=== PATIENT | male | born 1970 | race Caucasian/White ===

== ENCOUNTER 2017-06-10 17:00 | Emergency (ER) | payer OTHER ==
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
[2017-06-10 17:23] VITALS: BP 109/71; BMI 20.3
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
[2017-06-10] MEDS ORDERED: TORADOL 30 MG VIAL IVP ONE (19:17)
[2017-06-10] MEDS ORDERED: TORADOL 30 MG VIAL ONE (19:18)
--- NOTE | 2017-06-10 19:41 | RAD ---
EXAM: Left shoulder x-ray INDICATION: Pain COMPARISION: No priors for comparison TECHNIQUE: Lateral, AP with internal and external rotation, 3 views FINDINGS: No acute fracture or dislocation. Mild degenerative arthropathy is present the acromioclavicular yakelin nt. The glenohumeral joint appears unremarkable. The soft tissues are normal. No radiopaque foreign body. The visualize ribs are intact. IMPRESSION: Degenerative arthropathy is present the acromioclavicular joint. Reported By:
== END 2017-06-10 19:40 | disposition home or self-care (01) ==
LOC: ER 17:05
DX: S29.019A Strain of muscle and tendon of unspecified wall of thorax, initial encounter (principal); S39.012A Strain of muscle, fascia and tendon of lower back, initial encounter; S16.1XXA Strain of muscle, fascia and tendon at neck level, initial encounter; S09.8XXA Other specified injuries of head, initial encounter; V87.7XXA Person injured in collision between other specified motor vehicles (traffic), initial encounter
CPT/HCPCS: 70450; 72125; 72128; 72131; 73030; 96365; 96374; 99283; J1885

== ENCOUNTER 2024-12-09 08:51 | Inpatient (IN) ==
--- NOTE | 2024-12-09 08:56 | EKG ---
Test Reason : short of breath Blood Pressure : */* mmHG Vent. Rate : 82 BPM Atrial Rate : 82 BPM P-R Int : 148 ms QRS Dur : 94 ms QT Int : 360 ms P-R-T Axes : 84 254 70 degrees QTc Int : 420 ms Sinus rhythm with marked sinus arrhythmia Septal infarct (cited on or before 13-SEP-2024) Possible Lateral infarct , age undetermined Abnormal ECG When compared with ECG of 21-OCT-2024 17:13, QRS axis shifted left Borderline criteria for Lateral infarct are now present T wave inversion no longer evident in Anterior leads QT has shortened Confirmed by Kirill Carlton MD ([id number]) on 12/09/2024 10:26:33 AM Referred By: Confirmed By: Kirill Carlton MD
[2024-12-09 09:11] LABS: BASOPHILS # (AUTO) 0.1 X10^3/uL (0.0-0.1); BASOPHILS % (AUTO) 1.2 % (0.2-1.0); EOSINOPHILS % (AUTO) 0.1 % (0.9-2.9); HEMATOCRIT 45.8 % (42.0-54.0); HEMOGLOBIN 15.7 g/dL (13.5-18.0); LYMPHOCYTES # (AUTO) 2.2 X10^3/uL (1.3-2.9); MEAN CORPUSCULAR HEMOGLOBIN 32.7 pg (27.0-34.0); MEAN CORPUSCULAR HGB CONC 34.2 g/dL (33.0-35.0); MEAN CORPUSCULAR VOLUME 95.6 fL (80.0-100.0); MEAN PLATELET VOLUME 7.7 fL (7.4-11.0); MONOCYTES # (AUTO) 0.7 x10^3/uL (0.3-0.8); MONOCYTES % (AUTO) 9.3 % (0.0-13.0); NEUTROPHILS # (AUTO) 4.4 x10^3/uL (2.2-4.8); NEUTROPHILS % (AUTO) 59.4 % (42.0-75.0); PLATELET COUNT 302 X10^3/uL (150.0-450.0); RED BLOOD COUNT 4.79 X10^6/uL (4.7-6.0); RED CELL DISTRIBUTION WIDTH 13.5 % (11.6-16.5); WHITE BLOOD COUNT 7.5 X10^3/uL (3.6-10.0)
--- NOTE | 2024-12-09 09:13 | DR.SOBA ---
HPI Time Seen Time Seen by Provider: 12/09/24 09:04 Primary Care Physician Primary Care Physician: Shankar HPI Comment HPI Comment: History as below. Complaints Chief Complaint Doctors Comments: Patient is 54yr old male in ER complaining of SOB and chest pain that started this morning. He was sleeping and woke up with sudden onset of severe SOB and chest tightness. Patient has history of pneumothorax and COPD. He denies trauma, fever, congestion and dysuria. Chief Complaint:: PT was asleep and woke up with SOB and chest pain. Pt is deaf and has a fly tier present. Self Treatment fo Chief Complaint: inhaler COVID-19 Coronavirus risk:travel/contact w/high risk person: No Has patient experienced Coronavirus symptoms: Yes Coronavirus symptoms experienced: Shortness of Breath Reviewed Nurses Notes Reviewed: Yes Source History Provided: Patient, Family Member and Significant Other Mode of Arrival Mode of Arrival: Ambulatory Timing Onset of Chief Complaint: 12/09/24 PMH PMH Past Medical History: Yes Past Medical History: COPD Past Surgical History: Yes Surgical History: Ortho Surgery Family History History of Family Medical Conditions: No Social History Do you use any recreational Drugs:: Yes (Marijuana) Lives With: Spouse Lives Where: Home Travel Risk Coronavirus risk:travel/contact w/high risk person: No Has patient experienced Coronavirus symptoms: Yes Coronavirus symptoms experienced: Shortness of Breath Infectious screening Have you traveled outside the country in the last 6 months?: No Isolation: Standard ROS Review of Systems Constitutional: Diaphoresis; negative Fever Eyes: No Symptoms Reported ENTM: Hearing Loss (Patient is deaf.); negative Nose Discharge or Nose Congestion Respiratoy: No Symptoms Reported, Moist Cough, Orthopnea, Short of Breath and Wheezing Cardiovascular: Chest Pain (TIGHTNESS.) Gastrointestinal/Abdominal: No Symptoms Reported; negative Abdominal Pain, Diarrhea, Nausea or Vomiting Genitourinary: No Symptoms Reported; negative Dysuria Neurological: No Symptoms Reported and Other (Patient is deaf.); negative Headache, Weakness or Dizziness Musculoskeletal: No Symptoms Reported; negative Muscle Pain Integumentary: No Symptoms Reported; negative Rash Hematologic/Lymphatic: No Symptoms Reported; negative Easy Bruising Endocrine: No Symptoms Reported; negative Increased Thirst or Increased Urine Psychiatric: No Symptoms Reported All Other Systems: Reviewed and Negative PE Vital Signs Vitals: Vital Signs Temperature 97.5 F Pulse Rate [Left Radial] 84 Pulse Rate 88 Pulse Rate 95 Pulse Rate 89 Pulse Rate 94 Pulse Rate 97 Pulse Rate 92 Pulse Rate 98 Pulse Rate 98 Respiratory Rate 38 Respiratory Rate 22 Respiratory Rate 20 Respiratory Rate 20 Blood Pressure [Right Arm] 116/73 Blood Pressure 116/73 Blood Pressure 112/80 Blood Pressure 115/77 O2 Sat by Pulse Oximetry 96 O2 Sat by Pulse Oximetry 95 O2 Sat by Pulse Oximetry 96 O2 Sat by Pulse Oximetry 96 O2 Sat by Pulse Oximetry 99 O2 Sat by Pulse Oximetry 95 O2 Sat by Pulse Oximetry 95 O2 Sat by Pulse Oximetry 96 General Limitations: No Limitations General Appearance: Alert and In Distress Head Head Exam: Normal Inspection Eyes Eye exam: Normal Appearance ENT ENT Exam: Normal Oropharynx, Normal External Ear Exam and TM's Normal Bilaterally Neck Neck Exam: Normal Inspection and Trachea Midline; negative Tenderness Chest Chest Inspection: Normal Inspection, Symmetric Chest Wall Rise and Tenderness; negative Rash Respiratory Respiratory Exam: Accessory Muscle Use, Chest Wall Tenderness and Respiratory Distress Respiratory Exam: Bilateral: Wheezing and Bilateral: Rhonchi, Left: Decreased Breath Sounds, Upper: Decreased Breath Sounds and Lower: Decreased Breath Sounds Cardiovascular Cardiovascular Exam: Regular Rate, Normal Rhythm and Normal Heart Sounds; negative Systolic Murmur or Diastolic Murmur Abdominal Exam Abdominal Exam: Normal Inspection, Normal Bowel Sounds and Soft; negative Tenderness Extremities Extremities Exam: Normal Inspection and Normal Capillary Refill Back Back Exam: Normal Inspection; negative (R) CVA Tenderness or (L) CVA Tenderness Neurologic Neurological Exam: Alert, Oriented X3 and Other (Deafness); negative Motor Sensory Deficit Psychiatric Psychiatric Exam: Normal Affect and Anxious Skin Skin Exam: Warm and Intact MDM Differential Diagnosis Differential Diagnosis: Bronchitis, COPD, Pneumonia, Pneumothorax and Respiratory Insufficiency COURSE Treatment Treatment: See orders done while patient was in ER. Labs, EKG and X-ray discu ssed. Surgical consult chest tube insertion and admission to hospital for further management. Education/Counseling Education/Counseling: Patient and Family Educated On: Diagnosis Critical Care Notes Total Time (mins): 30 Critical Diagnosis: PEUMOTHORAX. Critical Interventions: SURGERY CONSULT. DISCUSSED PATIENT WITH PATIENT AND FAMILY. CHEST TUBE INSERTED IN ER BY DR. RODRIGUEZ. HE WILL ADMIT PATIENT TO HOSPITAL FOR FURTHER MANAGEMENT. [facility] Labs Reviewed Laboratory Results Reviewed?: Yes 12/21/24 06:41 12/21/24 06:41 Laboratory: WBC 7.5 X10^3/uL (3.6-10.0) 12/09/24 08:56 RBC 4.79 X10^6/uL (4.7-6.0) 12/09/24 08:56 Hgb 15.7 g/dL (13.5-18.0) 12/09/24 08:56 Hct 45.8 % (42.0-54.0) 12/09/24 08:56 MCV 95.6 fL (80.0-100.0) 12/09/24 08:56 MCH 32.7 pg (27.0-34.0) 12/09/24 08:56 MCHC 34.2 g/dL (33.0-35.0) 12/09/24 08:56 RDW 13.5 % (11.6-16.5) 12/09/24 08:56 Plt Count 302 X10^3/uL (150.0-450.0) 12/09/24 08:56 MPV 7.7 fL (7.4-11.0) 12/09/24 08:56 Neut % (Auto) 59.4 % (42.0-75.0) 12/09/24 08:56 Lymph % (Auto) 30.0 % (21.0-51.0) 12/09/24 08:56 Armstrong % (Auto) 9.3 % (0.0-13.0) 12/09/24 08:56 Eos % (Auto) 0.1 % (0.9-2.9) L 12/09/24 08:56 Baso % (Auto) 1.2 % (0.2-1.0) H 12/09/24 08:56 Neut # (Auto) 4.4 x10^3/uL (2.2-4.8) 12/09/24 08:56 Lymph # (Auto) 2.2 X10^3/uL (1.3-2.9) 12/09/24 08:56 Armstrong # (Auto) 0.7 x10^3/uL (0.3-0.8) 12/09/24 08:56 Eos # (Auto) 0.0 x10^3/uL (0.0-0.2) 12/09/24 08:56 Baso # (Auto) 0.1 X10^3/uL (0.0-0.1) 12/09/24 08:56 Absolute Nucleated RBC 0.2 /100WBC 12/09/24 08:56 PT 13.2 SECONDS (11.8-14.3) 12/09/24 08:56 INR Target Range - 12/09/24 08:56 INR 1.02 (0.8-1.3) 12/09/24 08:56 D-Dimer < 0.27 ug/ml (0.0-0.57) 12/09/24 08:56 Sample Site Lbra 12/09/24 09:45 ABG pH 7.430 (7.35-7.45) 12/09/24 09:45 ABG pCO2 38.0 mmHg (35.0-45.0) 12/09/24 09:45 ABG pO2 57.0 mmHg (80.0-100.0) L 12/09/24 09:45 ABG HCO3 25.2 mmol/L (22-26) 12/09/24 09:45 ABG O2 Saturation 90.0 % (90-100) 12/09/24 09:45 ABG Base Excess 1.0 mmol/L (-2.0-2.0) 12/09/24 09:45 Pipe Test N/a 12/09/24 09:45 A-a Gradient 45.0 mmHg 12/09/24 09:45 FiO2 21.0 12/09/24 09:45 Blood Gas Comments Pt martine well elj 12/09/24 09:45 Sodium 143 mmol/L (136-145) 12/09/24 08:56 Corrected Sodium 144 mmol/L (136-145) 12/09/24 08:56 Potassium 3.6 mmol/L (3.5-5.1) 12/09/24 08:56 Chloride 103 mmol/L (98-107) 12/09/24 08:56 Carbon Dioxide 28.6 mmol/L (21-32) 12/09/24 08:56 BUN 13 mg/dL (7-18) 12/09/24 08:56 Creatinine 1.13 mg/dL (0.70-1.30) 12/09/24 08:56 Est GFR (MDRD) Af Amer > 60 (>60) 12/09/24 08:56 Est GFR (MDRD) Non-Af > 60 (>60) 12/09/24 08:56 Glucose 126 mg/dL (65-99) H 12/09/24 08:56 Calcium 9.3 mg/dL (8.5-10.1) 12/09/24 08:56 Corrected Calcium TNP 12/09/24 08:56 Total Bilirubin 1.20 mg/dL (0.2-1.0) H 12/09/24 08:56 AST 19 Units/L (15-37) 12/09/24 08:56 ALT 20 Units/L (12-78) 12/09/24 08:56 Alkaline Phosphatase 65 Units/L (46-116) 12/09/24 08:56 Creatine Kinase 169 Units/L (39-308) 12/09/24 08:56 Troponin I High Sens 6.3 ng/L (4.0-60.0) 12/09/24 08:56 B-Natriuretic Peptide 12.9 pg/mL (0-79) 12/09/24 08:56 Total Protein 7.4 g/dL (6.4-8.2) 12/09/24 08:56 Albumin 4.5 g/dL (3.4-5.0) 12/09/24 08:56 Globulin 2.9 g/dL (2.5-4.5) 12/09/24 08:56 Albumin/Globulin Ratio 1.6 Ratio (1.1-2.1) 12/09/24 08:56 Specimen Type Clean catch urine 12/09/24 10:10 Urine Color Straw (YELLOW) 12/09/24 10:10 Urine Appearance Clear (CLEAR) 12/09/24 10:10 Urine pH 6.0 (5.0 - 8.0) 12/09/24 10:10 Ur Specific [place] 1.010 (1.000-1.030) 12/09/24 10:10 Urine Protein 1+ (NEGATIVE) 12/09/24 10:10 Urine Glucose (UA) Negative (NEGATIVE) 12/09/24 10:10 Urine Ketones Negative (NEGATIVE) 12/09/24 10:10 Urine Blood Negative (NEGATIVE) 12/09/24 10:10 Urine Nitrite Negative (NEGATIVE) 12/09/24 10:10 Urine Bilirubin Negative (NEGATIVE) 12/09/24 10:10 Urine Urobilinogen Normal (NORMAL) 12/09/24 10:10 Ur Leukocyte Esterase Negative (NEGATIVE) 12/09/24 10:10 Urine RBC None seen /HPF (0-3) 12/09/24 10:10 Urine WBC 0-2 /HPF (0-5) 12/09/24 10:10 Ur Squamous Epith Cells Rare /HPF (NEGATIVE) 12/09/24 10:10 Urine Bacteria Negative /HPF (NEGATIVE) 12/09/24 10:10 Urine Mucus Rare /HPF (NEGATIVE) 12/09/24 10:10 Ur Culture Indicated? No/not indicated 12/09/24 10:10 XRAY XRAY Interpreted by: Radiologist (Report noted.) and Self Opioid Opioid Risk Tool Age (Nik box if 16-45): No History of Preadolescent Sexual Abuse: No Total: 0 Total Score Risk Category: Low Risk Copyright: Adeel WEEKS predicting aberrant behaviors Procedures Chest Tube Progress: Chest tube inserted by surgeon, Dr. RODRIGUEZ. See his note. Discharge Plan Diagnosis Discharge Problem: Acute dyspnea Pneumothorax Qualifiers: Pneumothorax type: spontaneous, tension Qualified Code(s): J93.0 - Spontaneous tension pneumothorax Discharge Plan Patient Disposition: ADMITTED INPATIENT Condition: Stable
[2024-12-09 09:28] LABS: ALANINE AMINOTRANSFERASE 20 Units/L (12-78); ALBUMIN 4.5 g/dL (3.4-5.0); ALKALINE PHOSPHATASE 65 Units/L (46-116); ASPARTATE AMINO TRANSFERASE 19 Units/L (15-37); BLOOD UREA NITROGEN 13 mg/dL (7-18); CALCIUM 9.3 mg/dL (8.5-10.1); CARBON DIOXIDE 28.6 mmol/L (21-32); CHLORIDE 103 mmol/L (98-107); COR NA(FOR HYPERGLY) 144 mmol/L (136-145); CREATINE KINASE 169 Units/L (39-308); CREATININE 1.13 mg/dL (0.70-1.30); GLUCOSE 126 mg/dL (65-99); POTASSIUM 3.6 mmol/L (3.5-5.1); SODIUM 143 mmol/L (136-145); TOTAL PROTEIN 7.4 g/dL (6.4-8.2); eGFR NON BLACK RACES > 60 (>60)
[2024-12-09 09:35] LABS: INR 1.02 (0.8-1.3)
[2024-12-09] MEDS: ZOFRAN INJ 4 MG VIAL IVP ONE (09:40)
[2024-12-09] MEDS: MORPHINE SULFATE INJ 2 MG INJ IVP ONE (09:45)
[2024-12-09] MEDS: MORPHINE SULFATE INJ 4 MG IVP ONE ×2 (09:46→20:52)
[2024-12-09 09:53] LABS: ABG HCO3 25.2 mmol/L (22-26)
--- NOTE | 2024-12-09 09:58 | RAD ---
EXAMINATION:CHEST, 1 VIEWHISTORY:SOB H/O PNEUMO; .COMPARISON STUDY:10/21/2024TECHNIQUE:One viewFINDINGS:Normal heart size. 30% left-sided pneumothorax. Minimal shift to the right. Atelectasis in the lingula. No acute infiltrates. No right pneumothorax. Hilar and mediastinal structures and bony structures unchanged. EKG leads overlie the chest.IMPRESSION:30% left-sided pneumothorax. Minimal shift to the rightTHIS IS AN ELECTRONICALLY VERIFIED FINAL REPORT12/09/2024 9:44 AM - Electronically signed by Dante Figueroa MD
[2024-12-09 10:17] LABS: BILIRUBIN,URINE NEGATIVE (NEGATIVE); BLOOD/HEMOGLOBIN,URINE NEGATIVE (NEGATIVE); GLUCOSE, URINE NEGATIVE (NEGATIVE); KETONES,URINE NEGATIVE (NEGATIVE); LEUKOCYTE ESTERASE ,URINE NEGATIVE (NEGATIVE); NITRITES,URINE NEGATIVE (NEGATIVE); PROTEIN,URINE 1+ (NEGATIVE); UROBILINOGEN,URINE NORMAL (NORMAL)
[2024-12-09 10:26] LABS: APPEARANCE,URINE CLEAR (CLEAR); COLOR,URINE STRAW (YELLOW)
[2024-12-09 10:27] LABS: BACTERIA,URINE NEGATIVE /HPF (NEGATIVE); RBC,URINE NONE SEEN /HPF (0-3); SQUAMOUS EPITHELIAL CELL,UR RARE /HPF (NEGATIVE)
[2024-12-09] MEDS: VERSED IVP ONE ×2 (12:30→13:45)
[2024-12-09] MEDS: DEMEROL INJ IVP ONE (13:12)
[2024-12-09] MEDS: MORPHINE SULFATE INJ 2 MG INJ ONE (13:16)
[2024-12-09] MEDS: ZOFRAN INJ 4 MG VIAL ONE (13:16)
[2024-12-09] MEDS: ATIVAN INJ 2 MG VIAL IVP ONE (13:53)
[2024-12-09] MEDS: ANCEF VIAL 1 GRAM ONE (14:09)
[2024-12-09] MEDS: VERSED ONE (14:09)
[2024-12-09] MEDS ORDERED: VENTOLIN or PROAIR HFA IN PRN (14:09)
[2024-12-09] MEDS: DEMEROL INJ ONE (14:09)
[2024-12-09] MEDS: ATIVAN INJ 2 MG VIAL ONE (14:10)
[2024-12-09] MEDS: LR 1,000 ML IV 1,000 ML IV ONE (14:10)
[2024-12-09] MEDS: LR 1,000 ML IV 1,000 ML IV SCH (14:15)
--- NOTE | 2024-12-09 14:31 | RAD ---
EXAM: CHEST, 1 VIEW HISTORY: CHEST TUBE PLACEMENT ; COMPARISON: No relevant prior studies were available for comparison at the time of interpretation. TECHNIQUE: CHEST, 1 VIEW FINDINGS: Chest: Lines and tubes: Left chest tube is in satisfactory position Mediastinum: Cardiac and mediastinal shadow is within normal limits for size and contour. Pulmonary vessels: No pulmonary vascular congestion. Lung quintana: No suspicious airspace opacity. Pleura: No effusion. No pneumothorax. Bones and soft tissues: No acute osseous or soft tissue abnormality. IMPRESSION: 1. Left chest tube is in satisfactory position 2. Resolution of left pneumothorax THIS IS AN ELECTRONICALLY VERIFIED FINAL REPORT 12/09/2024 2:28 PM - Electronically signed by Khalif Hayes MD
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
[2024-12-09 15:20] VITALS: BMI 20.9
[2024-12-09] MEDS: MORPHINE SULFATE INJ 2 MG INJ IVP PRN (17:24)
[2024-12-09] MEDS: PROVENTIL NEB TX 0.083% 2.5MG/ 3ML NEB PRN (21:14)
[2024-12-10 06:22] LABS: BASOPHILS % (AUTO) 0.2 % (0.2-1.0); HEMATOCRIT 39.6 % (42.0-54.0); HEMOGLOBIN 13.7 g/dL (13.5-18.0); LYMPHOCYTES # (AUTO) 1.3 X10^3/uL (1.3-2.9); LYMPHOCYTES % (AUTO) 12.8 % (21.0-51.0); MEAN CORPUSCULAR HEMOGLOBIN 32.9 pg (27.0-34.0); MEAN CORPUSCULAR HGB CONC 34.6 g/dL (33.0-35.0); MEAN CORPUSCULAR VOLUME 95.3 fL (80.0-100.0); MEAN PLATELET VOLUME 8.1 fL (7.4-11.0); MONOCYTES # (AUTO) 0.8 x10^3/uL (0.3-0.8); MONOCYTES % (AUTO) 8.3 % (0.0-13.0); NEUTROPHILS % (AUTO) 78.7 % (42.0-75.0); PLATELET COUNT 253 X10^3/uL (150.0-450.0); RED BLOOD COUNT 4.16 X10^6/uL (4.7-6.0); RED CELL DISTRIBUTION WIDTH 13.4 % (11.6-16.5); WHITE BLOOD COUNT 10.1 X10^3/uL (3.6-10.0)
[2024-12-10 06:59] LABS: ALANINE AMINOTRANSFERASE 21 Units/L (12-78); ALBUMIN 3.6 g/dL (3.4-5.0); ALKALINE PHOSPHATASE 53 Units/L (46-116); ASPARTATE AMINO TRANSFERASE 21 Units/L (15-37); BLOOD UREA NITROGEN 14 mg/dL (7-18); CALCIUM 8.5 mg/dL (8.5-10.1); CARBON DIOXIDE 29.8 mmol/L (21-32); CHLORIDE 103 mmol/L (98-107); CHOLESTEROL 189 mg/dL (0-200); COR NA(FOR HYPERGLY) 141 mmol/L (136-145); CREATININE 1.04 mg/dL (0.70-1.30); GLUCOSE 123 mg/dL (65-99); HDL CHOLESTEROL 64 mg/dL (40-60); MAGNESIUM 1.6 mg/dL (2.0-2.9); POTASSIUM 3.7 mmol/L (3.5-5.1); SODIUM 140 mmol/L (136-145); TOTAL PROTEIN 6.2 g/dL (6.4-8.2); TRIGLYCERIDES 70 mg/dL (0-150); eGFR NON BLACK RACES > 60 (>60)
--- NOTE | 2024-12-10 07:09 | RAD ---
EXAMINATION: CHEST, 1 VIEW HISTORY: LEFT PNEUMOTHROAX, SOB, CHEST TUBE ; COPD ORTHO . COMPARISON STUDY: Chest x-ray 12/09/2024 TECHNIQUE: Single portable AP view of the chest FINDINGS: Left-sided chest tube remains in place. The lungs are expanded. No pneumothorax. Trace amount of a ir within the soft tissues left lower lateral chest wall. Heart size and pulmonary vascular pattern appear normal. Bones are unchanged. IMPRESSION: Left-sided chest tube remains in place. No pneumothorax. THIS IS AN ELECTRONICALLY VERIFIED FINAL REPORT 12/10/2024 7:06 AM - Electronically signed by Kristina Hewitt MD
--- NOTE | 2024-12-10 07:46 | DR.PROGNOT ---
HOSPITAL PROGRESS NOTE Progress Note for Day of: Progress Note Date: 12/10/24 Chief Complaint Chief Complaint: c/o chest pain around the incision . chest X Ray showed expanded Lt lung . normal lab work . afebrile . [place] is clear . to keep chest tube for few days .. Past Medical Family Social History Past Med/Fam/Surg Hx: No changes since H&P Allergies: Allergies No Known Drug Allergies Allergy (Unknown, Verified 12/09/24 08:56) Onset Date: 01/25/2022 Vital Signs Vital Signs: Vital Signs Temperature 97.6 F Temperature 98.0 F Pulse Rate [Left Radial] 69 Pulse Rate [Left Radial] 73 Pulse Rate 67 Respiratory Rate 18 Respiratory Rate 19 Respiratory Rate 18 Respiratory Rate 19 Respiratory Rate 18 Respiratory Rate 20 Blood Pressure [Left Arm] 116/69 Blood Pressure [Left Arm] 109/62 O2 Sat by Pulse Oximetry 96 O2 Sat by Pulse Oximetry 95 O2 Sat by Pulse Oximetry 93 Physical Exam Oriented: Normal Eyes: Normal Respiratory: Normal Speech Pattern: Unclear Laboratory and Diagnostics 12/10/24 05:35 12/10/24 05:35 Labs: Laboratory WBC 10.1 X10^3/uL (3.6-10.0) H 12/10/24 05:35 RBC 4.16 X10^6/uL (4.7-6.0) L 12/10/24 05:35 Hgb 13.7 g/dL (13.5-18.0) D 12/10/24 05:35 Hct 39.6 % (42.0-54.0) L 12/10/24 05:35 MCV 95.3 fL (80.0-100.0) 12/10/24 05:35 MCH 32.9 pg (27.0-34.0) 12/10/24 05:35 MCHC 34.6 g/dL (33.0-35.0) 12/10/24 05:35 RDW 13.4 % (11.6-16.5) 12/10/24 05:35 Plt Count 253 X10^3/uL (150.0-450.0) 12/10/24 05:35 MPV 8.1 fL (7.4-11.0) 12/10/24 05:35 Neut % (Auto) 78.7 % (42.0-75.0) H 12/10/24 05:35 Lymph % (Auto) 12.8 % (21.0-51.0) L 12/10/24 05:35 [place] % (Auto) 8.3 % (0.0-13.0) 12/10/24 05:35 Eos % (Auto) 0.0 % (0.9-2.9) L 12/10/24 05:35 Baso % (Auto) 0.2 % (0.2-1.0) 12/10/24 05:35 Neut # (Auto) 8.0 x10^3/uL (2.2-4.8) H 12/10/24 05:35 Lymph # (Auto) 1.3 X10^3/uL (1.3-2.9) 12/10/24 05:35 [place] # (Auto) 0.8 x10^3/uL (0.3-0.8) 12/10/24 05:35 Eos # (Auto) 0.0 x10^3/uL (0.0-0.2) 12/10/24 05:35 Baso # (Auto) 0.0 X10^3/uL (0.0-0.1) 12/10/24 05:35 Absolute Nucleated RBC 0.0 /100WBC 12/10/24 05:35 PT 13.2 SECONDS (11.8-14.3) 12/09/24 08:56 INR Target Range - 12/09/24 08:56 INR 1.02 (0.8-1.3) 12/09/24 08:56 D-Dimer < 0.27 ug/ml (0.0-0.57) 12/09/24 08:56 Sample Site Lbra 12/09/24 09:45 ABG pH 7.430 (7.35-7.45) 12/09/24 09:45 ABG pCO2 38.0 mmHg (35.0-45.0) 12/09/24 09:45 ABG pO2 57.0 mmHg (80.0-100.0) L 12/09/24 09:45 ABG HCO3 25.2 mmol/L (22-26) 12/09/24 09:45 ABG O2 Saturation 90.0 % (90-100) 12/09/24 09:45 ABG Base Excess 1.0 mmol/L (-2.0-2.0) 12/09/24 09:45 Pipe Test N/a 12/09/24 09:45 A-a Gradient 45.0 mmHg 12/09/24 09:45 FiO2 21.0 12/09/24 09:45 Blood Gas Comments Pt martine well elj 12/09/24 09:45 Sodium 140 mmol/L (136-145) 12/10/24 05:35 Corrected Sodium 141 mmol/L (136-145) 12/10/24 05:35 Potassium 3.7 mmol/L (3.5-5.1) 12/10/24 05:35 Chloride 103 mmol/L (98-107) 12/10/24 05:35 Carbon Dioxide 29.8 mmol/L (21-32) 12/10/24 05:35 BUN 14 mg/dL (7-18) 12/10/24 05:35 Creatinine 1.04 mg/dL (0.70-1.30) 12/10/24 05:35 Est GFR (MDRD) Af Amer > 60 (>60) 12/10/24 05:35 Est GFR (MDRD) Non-Af > 60 (>60) 12/10/24 05:35 Glucose 123 mg/dL (65-99) H 12/10/24 05:35 Calcium 8.5 mg/dL (8.5-10.1) 12/10/24 05:35 Corrected Calcium TNP 12/10/24 05:35 Magnesium 1.6 mg/dL (2.0-2.9) L 12/10/24 05:35 Total Bilirubin 1.00 mg/dL (0.2-1.0) 12/10/24 05:35 AST 21 Units/L (15-37) 12/10/24 05:35 ALT 21 Units/L (12-78) 12/10/24 05:35 Alkaline Phosphatase 53 Units/L (46-116) 12/10/24 05:35 Creatine Kinase 169 Units/L (39-308) 12/09/24 08:56 Troponin I High Sens 18.8 ng/L (4.0-60.0) 12/10/24 05:35 B-Natriuretic Peptide 12.9 pg/mL (0-79) 12/09/24 08:56 Total Protein 6.2 g/dL (6.4-8.2) L 12/10/24 05:35 Albumin 3.6 g/dL (3.4-5.0) 12/10/24 05:35 Globulin 2.6 g/dL (2.5-4.5) 12/10/24 05:35 Albumin/Globulin Ratio 1.4 Ratio (1.1-2.1) 12/10/24 05:35 Triglycerides 70 mg/dL (0-150) 12/10/24 05:35 Cholesterol 189 mg/dL (0-200) 12/10/24 05:35 LDL Cholesterol, Calc 111 mg/dL (0-100) H 12/10/24 05:35 HDL Cholesterol 64 mg/dL (40-60) H 12/10/24 05:35 Cholesterol/HDL Ratio 3.0 (0.0-5.0) 12/10/24 05:35 Specimen Type Clean catch urine 12/09/24 10:10 Urine Color Straw (YELLOW) 12/09/24 10:10 Urine Appearance Clear (CLEAR) 12/09/24 10:10 Urine pH 6.0 (5.0 - 8.0) 12/09/24 10:10 Ur Specific [place] 1.010 (1.000-1.030) 12/09/24 10:10 Urine Protein 1+ (NEGATIVE) 12/09/24 10:10 Urine Glucose (UA) Negative (NEGATIVE) 12/09/24 10:10 Urine Ketones Negative (NEGATIVE) 12/09/24 10:10 Urine Blood Negative (NEGATIVE) 12/09/24 10:10 Urine Nitrite Negative (NEGATIVE) 12/09/24 10:10 Urine Bilirubin Negative (NEGATIVE) 12/09/24 10:10 Urine Urobilinogen Normal (NORMAL) 12/09/24 10:10 Ur Leukocyte Esterase Negative (NEGATIVE) 12/09/24 10:10 Urine RBC None seen /HPF (0-3) 12/09/24 10:10 Urine WBC 0-2 /HPF (0-5) 12/09/24 10:10 Ur Squamous Epith Cells Rare /HPF (NEGATIVE) 12/09/24 10:10 Urine Bacteria Negative /HPF (NEGATIVE) 12/09/24 10:10 Urine Mucus Rare /HPF (NEGATIVE) 12/09/24 10:10 Ur Culture Indicated? No/not indicated 12/09/24 10:10 Assessment and Plan 1: recurrent spontaneous Lt pneumothorax . s/p placement of chest tube . same plan . Problem Patient Problems: Patient Problems Pneumothorax (Acute) J93.9 Acute dyspnea (Acute) R06.00
[2024-12-10] MEDS ORDERED: CONSULT PHARMACY - POTASSIUM & MAGNESIUM XX SCH (08:00)
[2024-12-10] MEDS: K-DUR TAB 20 MEQ PO ONE (09:05)
[2024-12-10] MEDS: LR 1,000 ML IV 1,000 ML with MAGNESIUM SULFATE 50% INJ VIAL 1 G IV SCH (09:07)
[2024-12-10] MEDS: SINGULAIR TAB 10 MG PO SCH (09:08)
[2024-12-10] MEDS: ZyrTEC TAB 10 MG PO SCH (09:08)
[2024-12-10] MEDS: K-DUR TAB 20 MEQ PO NR (11:58)
--- NOTE | 2024-12-10 14:12 | NOTE.SOAP ---
Soap Note Note for Day of Date of Exam: 12/10/24 Subjective Data Subjective Data: sob improved/pain around chest tube- still worried about heart Objective Data Objective Data: trops negative x 3, echo w/o focal wall motion abnormality- lipids mildly elevated- ASCVD risk 3.9% (low)- was to have DSE next week- suspect sx no doubt related to previous chest tube/pneumothorax- due to deaf- cant do walking stress test due to safety- will consider DSE vs cardiac cta prior to d/c- if cta: need hr < 60 Assessment Assessment: pneumothorax/chest tube- chest pain/sob since last chest tube- Plan Plan: DSE vs CCTA before d/c when chest tube out
[2024-12-10] MEDS: ZOFRAN INJ 4 MG VIAL IVP PRN (15:01)
[2024-12-10] MEDS: NORCO 5/325 MG TAB PO PRN (23:01)
[2024-12-11 05:42] LABS: BASOPHILS % (AUTO) 0.5 % (0.2-1.0); HEMATOCRIT 38.7 % (42.0-54.0); HEMOGLOBIN 13.3 g/dL (13.5-18.0); LYMPHOCYTES # (AUTO) 1.6 X10^3/uL (1.3-2.9); LYMPHOCYTES % (AUTO) 18.3 % (21.0-51.0); MEAN CORPUSCULAR HGB CONC 34.2 g/dL (33.0-35.0); MEAN CORPUSCULAR VOLUME 96.3 fL (80.0-100.0); MEAN PLATELET VOLUME 7.8 fL (7.4-11.0); MONOCYTES % (AUTO) 11.1 % (0.0-13.0); NEUTROPHILS # (AUTO) 6.3 x10^3/uL (2.2-4.8); NEUTROPHILS % (AUTO) 70.1 % (42.0-75.0); PLATELET COUNT 228 X10^3/uL (150.0-450.0); RED BLOOD COUNT 4.02 X10^6/uL (4.7-6.0); RED CELL DISTRIBUTION WIDTH 13.4 % (11.6-16.5); WHITE BLOOD COUNT 8.9 X10^3/uL (3.6-10.0)
[2024-12-11 05:52] LABS: ALANINE AMINOTRANSFERASE 17 Units/L (12-78); ALBUMIN 3.4 g/dL (3.4-5.0); ALKALINE PHOSPHATASE 54 Units/L (46-116); ASPARTATE AMINO TRANSFERASE 17 Units/L (15-37); BLOOD UREA NITROGEN 9 mg/dL (7-18); CALCIUM 8.6 mg/dL (8.5-10.1); CARBON DIOXIDE 30.8 mmol/L (21-32); CHLORIDE 104 mmol/L (98-107); COR NA(FOR HYPERGLY) 140 mmol/L (136-145); CREATININE 0.94 mg/dL (0.70-1.30); GLUCOSE 115 mg/dL (65-99); SODIUM 140 mmol/L (136-145); TOTAL PROTEIN 6.2 g/dL (6.4-8.2); eGFR NON BLACK RACES > 60 (>60)
--- NOTE | 2024-12-11 06:29 | RAD ---
EXAM: CHEST, 1 VIEW HISTORY: LEFT PNEUMOTHORAX, CHEST TUBE ; COPD SX: ORTHO COMPARISON: 12/10/2024 FINDINGS: The cardiomediastinal silhouette is stable. Left chest tube unchanged. No acute airspace disease. No pneumothorax or effusion. No acute osseous abnormality. IMPRESSION: Left chest tube. No definite pneumothorax. THIS IS AN ELECTRONICALLY VERIFIED FINAL REPORT 12/11/2024 6:25 AM - Electronically signed by Miguel Mcgowan MD
[2024-12-11] MEDS: COLACE CAP 100 MG PO PRN (08:13)
[2024-12-11] MEDS: MILK OF MAGNESIA PO PRN (08:14)
[2024-12-11] MEDS: VISTARIL PO PRN (09:04)
--- NOTE | 2024-12-11 10:16 | DR.PROGNOT ---
HOSPITAL PROGRESS NOTE Progress Note for Day of: Progress Note Date: 12/11/24 Chief Complaint Chief Complaint: No changes, c/o chest pain around the incision . chest X Ray showed expanded Lt lung . normal lab work . afebrile . [place] is clear . to keep chest tube for few days .. Same respiratory therapy, incentive spirometer and regular diet. Past Medical Family Social History Past Med/Fam/Surg Hx: No changes since H&P Allergies: Allergies No Known Drug Allergies Allergy (Unknown, Verified 12/09/24 08:56) Onset Date: 01/25/2022 Vital Signs Vital Signs: Vital Signs Temperature 98.9 F Temperature 98.6 F Pulse Rate [Left Radial] 94 Pulse Rate [Left Radial] 78 Pulse Rate 73 Respiratory Rate 20 Respiratory Rate 18 Respiratory Rate 18 Respiratory Rate 16 Respiratory Rate 20 Blood Pressure [Left Arm] 117/68 Blood Pressure [Left Arm] 121/70 O2 Sat by Pulse Oximetry 92 O2 Sat by Pulse Oximetry 97 O2 Sat by Pulse Oximetry 99 Physical Exam Oriented: Normal Eyes: Normal Ear: Normal Throat: Normal Respiratory: Normal Speech Pattern: Unclear Laboratory and Diagnostics 12/11/24 05:20 12/11/24 05:20 Labs: 12/10/24 13:29 Sputum - Expectorated Sputum Sputum Culture - Preliminary 12/10/24 13:29 Sputum - Expectorated Sputum - Final Laboratory WBC 8.9 X10^3/uL (3.6-10.0) 12/11/24 05:20 RBC 4.02 X10^6/uL (4.7-6.0) L 12/11/24 05:20 Hgb 13.3 g/dL (13.5-18.0) L 12/11/24 05:20 Hct 38.7 % (42.0-54.0) L 12/11/24 05:20 MCV 96.3 fL (80.0-100.0) 12/11/24 05:20 MCH 33.0 pg (27.0-34.0) 12/11/24 05:20 MCHC 34.2 g/dL (33.0-35.0) 12/11/24 05:20 RDW 13.4 % (11.6-16.5) 12/11/24 05:20 Plt Count 228 X10^3/uL (150.0-450.0) 12/11/24 05:20 MPV 7.8 fL (7.4-11.0) 12/11/24 05:20 Neut % (Auto) 70.1 % (42.0-75.0) 12/11/24 05:20 Lymph % (Auto) 18.3 % (21.0-51.0) L 12/11/24 05:20 [place] % (Auto) 11.1 % (0.0-13.0) 12/11/24 05:20 Eos % (Auto) 0.0 % (0.9-2.9) L 12/11/24 05:20 Baso % (Auto) 0.5 % (0.2-1.0) 12/11/24 05:20 Neut # (Auto) 6.3 x10^3/uL (2.2-4.8) H 12/11/24 05:20 Lymph # (Auto) 1.6 X10^3/uL (1.3-2.9) 12/11/24 05:20 [place] # (Auto) 1.0 x10^3/uL (0.3-0.8) H 12/11/24 05:20 Eos # (Auto) 0.0 x10^3/uL (0.0-0.2) 12/11/24 05:20 Baso # (Auto) 0.0 X10^3/uL (0.0-0.1) 12/11/24 05:20 Absolute Nucleated RBC 0.0 /100WBC 12/11/24 05:20 PT 13.2 SECONDS (11.8-14.3) 12/09/24 08:56 INR Target Range - 12/09/24 08:56 INR 1.02 (0.8-1.3) 12/09/24 08:56 D-Dimer < 0.27 ug/ml (0.0-0.57) 12/09/24 08:56 Sample Site Lbra 12/09/24 09:45 ABG pH 7.430 (7.35-7.45) 12/09/24 09:45 ABG pCO2 38.0 mmHg (35.0-45.0) 12/09/24 09:45 ABG pO2 57.0 mmHg (80.0-100.0) L 12/09/24 09:45 ABG HCO3 25.2 mmol/L (22-26) 12/09/24 09:45 ABG O2 Saturation 90.0 % (90-100) 12/09/24 09:45 ABG Base Excess 1.0 mmol/L (-2.0-2.0) 12/09/24 09:45 Pipe Test N/a 12/09/24 09:45 A-a Gradient 45.0 mmHg 12/09/24 09:45 FiO2 21.0 12/09/24 09:45 Blood Gas Comments Pt martine well elj 12/09/24 09:45 Sodium 140 mmol/L (136-145) 12/11/24 05:20 Corrected Sodium 140 mmol/L (136-145) 12/11/24 05:20 Potassium 4.0 mmol/L (3.5-5.1) 12/11/24 05:20 Chloride 104 mmol/L (98-107) 12/11/24 05:20 Carbon Dioxide 30.8 mmol/L (21-32) 12/11/24 05:20 BUN 9 mg/dL (7-18) 12/11/24 05:20 Creatinine 0.94 mg/dL (0.70-1.30) 12/11/24 05:20 Est GFR (MDRD) Af Amer > 60 (>60) 12/11/24 05:20 Est GFR (MDRD) Non-Af > 60 (>60) 12/11/24 05:20 Glucose 115 mg/dL (65-99) H 12/11/24 05:20 Calcium 8.6 mg/dL (8.5-10.1) 12/11/24 05:20 Corrected Calcium TNP 12/11/24 05:20 Magnesium 2.0 mg/dL (2.0-2.9) 12/11/24 05:20 Total Bilirubin 1.00 mg/dL (0.2-1.0) 12/11/24 05:20 AST 17 Units/L (15-37) 12/11/24 05:20 ALT 17 Units/L (12-78) 12/11/24 05:20 Alkaline Phosphatase 54 Units/L (46-116) 12/11/24 05:20 Creatine Kinase 169 Units/L (39-308) 12/09/24 08:56 Troponin I High Sens 18.8 ng/L (4.0-60.0) 12/10/24 05:35 B-Natriuretic Peptide 12.9 pg/mL (0-79) 12/09/24 08:56 Total Protein 6.2 g/dL (6.4-8.2) L 12/11/24 05:20 Albumin 3.4 g/dL (3.4-5.0) 12/11/24 05:20 Globulin 2.8 g/dL (2.5-4.5) 12/11/24 05:20 Albumin/Globulin Ratio 1.2 Ratio (1.1-2.1) 12/11/24 05:20 Triglycerides 70 mg/dL (0-150) 12/10/24 05:35 Cholesterol 189 mg/dL (0-200) 12/10/24 05:35 LDL Cholesterol, Calc 111 mg/dL (0-100) H 12/10/24 05:35 HDL Cholesterol 64 mg/dL (40-60) H 12/10/24 05:35 Cholesterol/HDL Ratio 3.0 (0.0-5.0) 12/10/24 05:35 Specimen Type Clean catch urine 12/09/24 10:10 Urine Color Straw (YELLOW) 12/09/24 10:10 Urine Appearance Clear (CLEAR) 12/09/24 10:10 Urine pH 6.0 (5.0 - 8.0) 12/09/24 10:10 Ur Specific [place] 1.010 (1.000-1.030) 12/09/24 10:10 Urine Protein 1+ (NEGATIVE) 12/09/24 10:10 Urine Glucose (UA) Negative (NEGATIVE) 12/09/24 10:10 Urine Ketones Negative (NEGATIVE) 12/09/24 10:10 Urine Blood Negative (NEGATIVE) 12/09/24 10:10 Urine Nitrite Negative (NEGATIVE) 12/09/24 10:10 Urine Bilirubin Negative (NEGATIVE) 12/09/24 10:10 Urine Urobilinogen Normal (NORMAL) 12/09/24 10:10 Ur Leukocyte Esterase Negative (NEGATIVE) 12/09/24 10:10 Urine RBC None seen /HPF (0-3) 12/09/24 10:10 Urine WBC 0-2 /HPF (0-5) 12/09/24 10:10 Ur Squamous Epith Cells Rare /HPF (NEGATIVE) 12/09/24 10:10 Urine Bacteria Negative /HPF (NEGATIVE) 12/09/24 10:10 Urine Mucus Rare /HPF (NEGATIVE) 12/09/24 10:10 Ur Culture Indicated? No/not indicated 12/09/24 10:10 Assessment and Plan 1: recurrent spontaneous Lt pneumothorax . s/p placement of chest tube . same plan . Future recurrence is an indication for thoracoscopy and wedge resection of the involved lobe. Problem Patient Problems: Patient Problems Pneumothorax (Acute) J93.9 Acute dyspnea (Acute) R06.00
[2024-12-12 06:04] LABS: BASOPHILS % (AUTO) 0.4 % (0.2-1.0); HEMATOCRIT 38.3 % (42.0-54.0); LYMPHOCYTES # (AUTO) 1.5 X10^3/uL (1.3-2.9); LYMPHOCYTES % (AUTO) 16.3 % (21.0-51.0); MEAN CORPUSCULAR HEMOGLOBIN 32.7 pg (27.0-34.0); MONOCYTES % (AUTO) 11.4 % (0.0-13.0); NEUTROPHILS # (AUTO) 6.6 x10^3/uL (2.2-4.8); NEUTROPHILS % (AUTO) 71.9 % (42.0-75.0); PLATELET COUNT 230 X10^3/uL (150.0-450.0); RED BLOOD COUNT 3.99 X10^6/uL (4.7-6.0); RED CELL DISTRIBUTION WIDTH 13.3 % (11.6-16.5); WHITE BLOOD COUNT 9.2 X10^3/uL (3.6-10.0)
[2024-12-12 06:20] LABS: ALANINE AMINOTRANSFERASE 19 Units/L (12-78); ALBUMIN 3.3 g/dL (3.4-5.0); ALKALINE PHOSPHATASE 59 Units/L (46-116); ASPARTATE AMINO TRANSFERASE 16 Units/L (15-37); BLOOD UREA NITROGEN 8 mg/dL (7-18); CALCIUM 8.4 mg/dL (8.5-10.1); CARBON DIOXIDE 30.3 mmol/L (21-32); CHLORIDE 104 mmol/L (98-107); CREATININE 0.75 mg/dL (0.70-1.30); GLUCOSE 106 mg/dL (65-99); POTASSIUM 4.3 mmol/L (3.5-5.1); SODIUM 139 mmol/L (136-145); TOTAL PROTEIN 6.2 g/dL (6.4-8.2); eGFR NON BLACK RACES > 60 (>60)
--- NOTE | 2024-12-12 08:08 | RAD ---
EXAM:Portable chestHISTORY:Follow-up left pneumothoraxCOMPARISON:12/11/2024FINDINGS: r acute infiltrates. There is a left chest tube in place unchanged in position from the prior examination. No definite residual pneumothorax identified. Bony thorax is unremarkable.IMPRESSION:No residual or recurrent pneumothoraxNo acute infiltratesTHIS IS AN ELECTRONICALLY VERIFIED FINAL REPORT12/12/2024 8:05 AM - Electronically signed by Miguel Mcgowan MD
--- NOTE | 2024-12-12 13:11 | NOTE.SOAP ---
Soap Note Note for Day of Date of Exam: 12/12/24 Subjective Data Subjective Data: pain around chest tube,sob improved Objective Data Objective Data: hr 90s tele: nsr lungs clear no edema Assessment Assessment: pneumothorax/chest tube Plan Plan: the family was worried over his heart- was to have outpt test next week- no mi per trops/good lV per echo- will do test when he is recouperated from his chest tube/pneumo
[2024-12-13 06:04] LABS: BASOPHILS # (AUTO) 0.1 X10^3/uL (0.0-0.1); BASOPHILS % (AUTO) 1.4 % (0.2-1.0); HEMATOCRIT 39.6 % (42.0-54.0); HEMOGLOBIN 13.6 g/dL (13.5-18.0); LYMPHOCYTES # (AUTO) 1.7 X10^3/uL (1.3-2.9); LYMPHOCYTES % (AUTO) 20.5 % (21.0-51.0); MEAN CORPUSCULAR HEMOGLOBIN 33.1 pg (27.0-34.0); MEAN CORPUSCULAR HGB CONC 34.4 g/dL (33.0-35.0); MEAN PLATELET VOLUME 7.8 fL (7.4-11.0); MONOCYTES # (AUTO) 0.8 x10^3/uL (0.3-0.8); MONOCYTES % (AUTO) 9.8 % (0.0-13.0); NEUTROPHILS # (AUTO) 5.7 x10^3/uL (2.2-4.8); NEUTROPHILS % (AUTO) 68.3 % (42.0-75.0); PLATELET COUNT 229 X10^3/uL (150.0-450.0); RED BLOOD COUNT 4.13 X10^6/uL (4.7-6.0); RED CELL DISTRIBUTION WIDTH 13.5 % (11.6-16.5); WHITE BLOOD COUNT 8.3 X10^3/uL (3.6-10.0)
[2024-12-13 06:40] LABS: ALANINE AMINOTRANSFERASE 20 Units/L (12-78); ALBUMIN 3.4 g/dL (3.4-5.0); ALKALINE PHOSPHATASE 61 Units/L (46-116); ASPARTATE AMINO TRANSFERASE 17 Units/L (15-37); BLOOD UREA NITROGEN 11 mg/dL (7-18); CALCIUM 8.9 mg/dL (8.5-10.1); CARBON DIOXIDE 29.1 mmol/L (21-32); CHLORIDE 101 mmol/L (98-107); CREATININE 0.79 mg/dL (0.70-1.30); GLUCOSE 99 mg/dL (65-99); POTASSIUM 4.2 mmol/L (3.5-5.1); SODIUM 137 mmol/L (136-145); TOTAL PROTEIN 6.7 g/dL (6.4-8.2); eGFR NON BLACK RACES > 60 (>60)
[2024-12-13] MEDS ORDERED: ATIVAN TAB 1 MG PO PRN (12:31)
[2024-12-14 08:21] LABS: BASOPHILS # (AUTO) 0.1 X10^3/uL (0.0-0.1); BASOPHILS % (AUTO) 1.2 % (0.2-1.0); HEMOGLOBIN 14.6 g/dL (13.5-18.0); LYMPHOCYTES # (AUTO) 1.4 X10^3/uL (1.3-2.9); MEAN CORPUSCULAR HEMOGLOBIN 33.2 pg (27.0-34.0); MEAN CORPUSCULAR HGB CONC 34.7 g/dL (33.0-35.0); MEAN CORPUSCULAR VOLUME 95.5 fL (80.0-100.0); MONOCYTES # (AUTO) 0.7 x10^3/uL (0.3-0.8); MONOCYTES % (AUTO) 10.6 % (0.0-13.0); NEUTROPHILS # (AUTO) 4.1 x10^3/uL (2.2-4.8); NEUTROPHILS % (AUTO) 65.2 % (42.0-75.0); PLATELET COUNT 247 X10^3/uL (150.0-450.0); RED CELL DISTRIBUTION WIDTH 13.1 % (11.6-16.5); WHITE BLOOD COUNT 6.2 X10^3/uL (3.6-10.0)
[2024-12-14 08:32] LABS: ALANINE AMINOTRANSFERASE 21 Units/L (12-78); ALBUMIN 3.5 g/dL (3.4-5.0); ALKALINE PHOSPHATASE 75 Units/L (46-116); ASPARTATE AMINO TRANSFERASE 20 Units/L (15-37); BLOOD UREA NITROGEN 14 mg/dL (7-18); CALCIUM 9.2 mg/dL (8.5-10.1); CARBON DIOXIDE 30.7 mmol/L (21-32); CHLORIDE 100 mmol/L (98-107); CREATININE 0.75 mg/dL (0.70-1.30); GLUCOSE 94 mg/dL (65-99); POTASSIUM 4.1 mmol/L (3.5-5.1); SODIUM 140 mmol/L (136-145); TOTAL PROTEIN 7.1 g/dL (6.4-8.2); eGFR NON BLACK RACES > 60 (>60)
--- NOTE | 2024-12-14 09:33 | RAD ---
EXAM:CHEST, 1 VIEWHISTORY:SOB;COMPARISON:12/12/2024 r.br.br.br stable.Chronic appearing interstitial changes in the lungs. No acute airspace disease. Similar left chest tube. Tiny left apical pneumothorax.No acute osseous abnormality.IMPRESSION:Similar appearance of left chest tube with tiny residual left apical pneumothorax.THIS IS AN ELECTRONICALLY VERIFIED FINAL REPORT12/14/2024 9:30 AM - Electronically signed by Miguel Mcgowan MD
--- NOTE | 2024-12-14 09:45 | DR.PROGNOT ---
HOSPITAL PROGRESS NOTE Progress Note for Day of: Progress Note Date: 12/14/24 Chief Complaint Chief Complaint: No changes, c/o chest pain around the incision . chest X Ray showed expanded Lt lung . normal lab work . afebrile . [place] is clear . to keep chest tube for few days .. Same respiratory therapy, incentive spirometer and regular diet. Past Medical Family Social History Past Med/Fam/Surg Hx: No changes since H&P Allergies: Allergies No Known Drug Allergies Allergy (Unknown, Verified 12/09/24 08:56) Onset Date: 01/25/2022 Vital Signs Vital Signs: Vital Signs Temperature 98.4 F Temperature 98.3 F Pulse Rate [Left Radial] 72 Pulse Rate [Left Radial] 63 Pulse Rate 78 Respiratory Rate 19 Respiratory Rate 19 Respiratory Rate 19 Respiratory Rate 20 Respiratory Rate 17 Blood Pressure [Left Arm] 128/71 Blood Pressure [Left Arm] 105/62 O2 Sat by Pulse Oximetry 96 O2 Sat by Pulse Oximetry 99 O2 Sat by Pulse Oximetry 98 Physical Exam Oriented: Normal Eyes: Normal Ear: Normal Throat: Normal Respiratory: Normal Speech Pattern: Unclear Laboratory and Diagnostics 12/14/24 07:34 12/14/24 07:34 Labs: 12/10/24 13:29 Sputum - Expectorated Sputum Sputum Culture - Final Klebsiella Pneumoniae 12/10/24 13:29 Sputum - Expectorated Sputum - Final Laboratory WBC 6.2 X10^3/uL (3.6-10.0) 12/14/24 07:34 RBC 4.40 X10^6/uL (4.7-6.0) L 12/14/24 07:34 Hgb 14.6 g/dL (13.5-18.0) 12/14/24 07:34 Hct 42.0 % (42.0-54.0) 12/14/24 07:34 MCV 95.5 fL (80.0-100.0) 12/14/24 07:34 MCH 33.2 pg (27.0-34.0) 12/14/24 07:34 MCHC 34.7 g/dL (33.0-35.0) 12/14/24 07:34 RDW 13.1 % (11.6-16.5) 12/14/24 07:34 Plt Count 247 X10^3/uL (150.0-450.0) 12/14/24 07:34 MPV 8.0 fL (7.4-11.0) 12/14/24 07:34 Neut % (Auto) 65.2 % (42.0-75.0) 12/14/24 07:34 Lymph % (Auto) 23.0 % (21.0-51.0) 12/14/24 07:34 [place] % (Auto) 10.6 % (0.0-13.0) 12/14/24 07:34 Eos % (Auto) 0.0 % (0.9-2.9) L 12/14/24 07:34 Baso % (Auto) 1.2 % (0.2-1.0) H 12/14/24 07:34 Neut # (Auto) 4.1 x10^3/uL (2.2-4.8) 12/14/24 07:34 Lymph # (Auto) 1.4 X10^3/uL (1.3-2.9) 12/14/24 07:34 [place] # (Auto) 0.7 x10^3/uL (0.3-0.8) 12/14/24 07:34 Eos # (Auto) 0.0 x10^3/uL (0.0-0.2) 12/14/24 07:34 Baso # (Auto) 0.1 X10^3/uL (0.0-0.1) 12/14/24 07:34 Absolute Nucleated RBC 0.1 /100WBC 12/14/24 07:34 PT 13.2 SECONDS (11.8-14.3) 12/09/24 08:56 INR Target Range - 12/09/24 08:56 INR 1.02 (0.8-1.3) 12/09/24 08:56 D-Dimer < 0.27 ug/ml (0.0-0.57) 12/09/24 08:56 Sample Site Lbra 12/09/24 09:45 ABG pH 7.430 (7.35-7.45) 12/09/24 09:45 ABG pCO2 38.0 mmHg (35.0-45.0) 12/09/24 09:45 ABG pO2 57.0 mmHg (80.0-100.0) L 12/09/24 09:45 ABG HCO3 25.2 mmol/L (22-26) 12/09/24 09:45 ABG O2 Saturation 90.0 % (90-100) 12/09/24 09:45 ABG Base Excess 1.0 mmol/L (-2.0-2.0) 12/09/24 09:45 Pipe Test N/a 12/09/24 09:45 A-a Gradient 45.0 mmHg 12/09/24 09:45 FiO2 21.0 12/09/24 09:45 Blood Gas Comments Pt martine well elj 12/09/24 09:45 Sodium 140 mmol/L (136-145) 12/14/24 07:34 Corrected Sodium TNP 12/14/24 07:34 Potassium 4.1 mmol/L (3.5-5.1) 12/14/24 07:34 Chloride 100 mmol/L (98-107) 12/14/24 07:34 Carbon Dioxide 30.7 mmol/L (21-32) 12/14/24 07:34 BUN 14 mg/dL (7-18) 12/14/24 07:34 Creatinine 0.75 mg/dL (0.70-1.30) 12/14/24 07:34 Est GFR (MDRD) Af Amer > 60 (>60) 12/14/24 07:34 Est GFR (MDRD) Non-Af > 60 (>60) 12/14/24 07:34 Glucose 94 mg/dL (65-99) 12/14/24 07:34 Calcium 9.2 mg/dL (8.5-10.1) 12/14/24 07:34 Corrected Calcium TNP 12/14/24 07:34 Magnesium 2.0 mg/dL (2.0-2.9) 12/11/24 05:20 Total Bilirubin 0.60 mg/dL (0.2-1.0) 12/14/24 07:34 AST 20 Units/L (15-37) 12/14/24 07:34 ALT 21 Units/L (12-78) 12/14/24 07:34 Alkaline Phosphatase 75 Units/L (46-116) 12/14/24 07:34 Creatine Kinase 169 Units/L (39-308) 12/09/24 08:56 Troponin I High Sens 18.8 ng/L (4.0-60.0) 12/10/24 05:35 B-Natriuretic Peptide 12.9 pg/mL (0-79) 12/09/24 08:56 Total Protein 7.1 g/dL (6.4-8.2) 12/14/24 07:34 Albumin 3.5 g/dL (3.4-5.0) 12/14/24 07:34 Globulin 3.6 g/dL (2.5-4.5) 12/14/24 07:34 Albumin/Globulin Ratio 1.0 Ratio (1.1-2.1) L 12/14/24 07:34 Triglycerides 70 mg/dL (0-150) 12/10/24 05:35 Cholesterol 189 mg/dL (0-200) 12/10/24 05:35 LDL Cholesterol, Calc 111 mg/dL (0-100) H 12/10/24 05:35 HDL Cholesterol 64 mg/dL (40-60) H 12/10/24 05:35 Cholesterol/HDL Ratio 3.0 (0.0-5.0) 12/10/24 05:35 Specimen Type Clean catch urine 12/09/24 10:10 Urine Color Straw (YELLOW) 12/09/24 10:10 Urine Appearance Clear (CLEAR) 12/09/24 10:10 Urine pH 6.0 (5.0 - 8.0) 12/09/24 10:10 Ur Specific [place] 1.010 (1.000-1.030) 12/09/24 10:10 Urine Protein 1+ (NEGATIVE) 12/09/24 10:10 Urine Glucose (UA) Negative (NEGATIVE) 12/09/24 10:10 Urine Ketones Negative (NEGATIVE) 12/09/24 10:10 Urine Blood Negative (NEGATIVE) 12/09/24 10:10 Urine Nitrite Negative (NEGATIVE) 12/09/24 10:10 Urine Bilirubin Negative (NEGATIVE) 12/09/24 10:10 Urine Urobilinogen Normal (NORMAL) 12/09/24 10:10 Ur Leukocyte Esterase Negative (NEGATIVE) 12/09/24 10:10 Urine RBC None seen /HPF (0-3) 12/09/24 10:10 Urine WBC 0-2 /HPF (0-5) 12/09/24 10:10 Ur Squamous Epith Cells Rare /HPF (NEGATIVE) 12/09/24 10:10 Urine Bacteria Negative /HPF (NEGATIVE) 12/09/24 10:10 Urine Mucus Rare /HPF (NEGATIVE) 12/09/24 10:10 Ur Culture Indicated? No/not indicated 12/09/24 10:10 Assessment and Plan 1: recurrent spontaneous Lt pneumothorax . s/p placement of chest tube . same plan . Future recurrence is an indication for thoracoscopy and wedge resection of the involved lobe. Problem Patient Problems: Patient Problems Pneumothorax (Acute) J93.9 Acute dyspnea (Acute) R06.00
[2024-12-15 05:53] LABS: BASOPHILS # (AUTO) 0.1 X10^3/uL (0.0-0.1); BASOPHILS % (AUTO) 0.9 % (0.2-1.0); HEMATOCRIT 40.1 % (42.0-54.0); HEMOGLOBIN 14.1 g/dL (13.5-18.0); LYMPHOCYTES # (AUTO) 1.4 X10^3/uL (1.3-2.9); LYMPHOCYTES % (AUTO) 15.7 % (21.0-51.0); MEAN CORPUSCULAR HEMOGLOBIN 33.2 pg (27.0-34.0); MEAN CORPUSCULAR HGB CONC 35.2 g/dL (33.0-35.0); MEAN CORPUSCULAR VOLUME 94.2 fL (80.0-100.0); MEAN PLATELET VOLUME 7.5 fL (7.4-11.0); MONOCYTES # (AUTO) 0.9 x10^3/uL (0.3-0.8); MONOCYTES % (AUTO) 10.4 % (0.0-13.0); NEUTROPHILS # (AUTO) 6.3 x10^3/uL (2.2-4.8); PLATELET COUNT 251 X10^3/uL (150.0-450.0); RED BLOOD COUNT 4.25 X10^6/uL (4.7-6.0); RED CELL DISTRIBUTION WIDTH 12.6 % (11.6-16.5); WHITE BLOOD COUNT 8.6 X10^3/uL (3.6-10.0)
[2024-12-15 06:02] LABS: ALANINE AMINOTRANSFERASE 20 Units/L (12-78); ALBUMIN 3.3 g/dL (3.4-5.0); ALKALINE PHOSPHATASE 75 Units/L (46-116); ASPARTATE AMINO TRANSFERASE 19 Units/L (15-37); BLOOD UREA NITROGEN 17 mg/dL (7-18); CALCIUM 8.9 mg/dL (8.5-10.1); CARBON DIOXIDE 29.2 mmol/L (21-32); CHLORIDE 102 mmol/L (98-107); COR CA(FOR HYPOALB) 9.5 mg/dL (8.5-10.1); CREATININE 0.81 mg/dL (0.70-1.30); GLUCOSE 102 mg/dL (65-99); POTASSIUM 3.9 mmol/L (3.5-5.1); SODIUM 139 mmol/L (136-145); TOTAL PROTEIN 6.6 g/dL (6.4-8.2); eGFR NON BLACK RACES > 60 (>60)
--- NOTE | 2024-12-15 06:57 | RAD ---
EXAM:Chest PA and lateral viewsHISTORY:Chest tube pneumothoraxCOMPARISON:12/14/2024FINDINGS: r apical pneumothorax. No new abnormality noted. Persistent clear right chest.IMPRESSION:As above.THIS IS AN ELECTRONICALLY VERIFIED FINAL REPORT12/15/2024 6:53 AM - Electronically signed by Mario Moss MD
--- NOTE | 2024-12-15 10:40 | DR.PROGNOT ---
HOSPITAL PROGRESS NOTE Progress Note for Day of: Progress Note Date: 12/15/24 Chief Complaint Chief Complaint: No changes, doing fairly well , no significant CP . no SOB . chest X Ray showed expanded Lt lung . normal lab work . O2 sat 93 afebrile . Cruz is clear . to keep chest tube today . .. Same respiratory therapy, incentive spirometer and regular diet. Past Medical Family Social History Past Med/Fam/Surg Hx: No changes since H&P Allergies: Allergies No Known Drug Allergies Allergy (Unknown, Verified 12/09/24 08:56) Onset Date: 01/25/2022 Vital Signs Vital Signs: Vital Signs Temperature 98.1 F Temperature 97.6 F Pulse Rate [Left Radial] 88 Pulse Rate [Left Radial] 83 Pulse Rate 77 Respiratory Rate 20 Respiratory Rate 17 Respiratory Rate 20 Respiratory Rate 20 Respiratory Rate 18 Respiratory Rate 19 Blood Pressure [Left Arm] 117/69 Blood Pressure [Left Arm] 103/62 O2 Sat by Pulse Oximetry 93 O2 Sat by Pulse Oximetry 97 O2 Sat by Pulse Oximetry 97 Physical Exam Oriented: Normal Eyes: Normal Ear: Normal Nose: Normal Throat: Normal Respiratory: Normal and OTHER (chest tube in place ..) Speech Pattern: Aphasic Laboratory and Diagnostics 12/15/24 05:30 12/15/24 05:30 Labs: 12/10/24 13:29 Sputum - Expectorated Sputum Sputum Culture - Final Klebsiella Pneumoniae 12/10/24 13:29 Sputum - Expectorated Sputum - Final Laboratory WBC 8.6 X10^3/uL (3.6-10.0) 12/15/24 05:30 RBC 4.25 X10^6/uL (4.7-6.0) L 12/15/24 05:30 Hgb 14.1 g/dL (13.5-18.0) 12/15/24 05:30 Hct 40.1 % (42.0-54.0) L 12/15/24 05:30 MCV 94.2 fL (80.0-100.0) 12/15/24 05:30 MCH 33.2 pg (27.0-34.0) 12/15/24 05:30 MCHC 35.2 g/dL (33.0-35.0) H 12/15/24 05:30 RDW 12.6 % (11.6-16.5) 12/15/24 05:30 Plt Count 251 X10^3/uL (150.0-450.0) 12/15/24 05:30 MPV 7.5 fL (7.4-11.0) 12/15/24 05:30 Neut % (Auto) 73.0 % (42.0-75.0) 12/15/24 05:30 Lymph % (Auto) 15.7 % (21.0-51.0) L 12/15/24 05:30 [place] % (Auto) 10.4 % (0.0-13.0) 12/15/24 05:30 Eos % (Auto) 0.0 % (0.9-2.9) L 12/15/24 05:30 Baso % (Auto) 0.9 % (0.2-1.0) 12/15/24 05:30 Neut # (Auto) 6.3 x10^3/uL (2.2-4.8) H 12/15/24 05:30 Lymph # (Auto) 1.4 X10^3/uL (1.3-2.9) 12/15/24 05:30 [place] # (Auto) 0.9 x10^3/uL (0.3-0.8) H 12/15/24 05:30 Eos # (Auto) 0.0 x10^3/uL (0.0-0.2) 12/15/24 05:30 Baso # (Auto) 0.1 X10^3/uL (0.0-0.1) 12/15/24 05:30 Absolute Nucleated RBC 0.0 /100WBC 12/15/24 05:30 PT 13.2 SECONDS (11.8-14.3) 12/09/24 08:56 INR Target Range - 12/09/24 08:56 INR 1.02 (0.8-1.3) 12/09/24 08:56 D-Dimer < 0.27 ug/ml (0.0-0.57) 12/09/24 08:56 Sample Site Lbra 12/09/24 09:45 ABG pH 7.430 (7.35-7.45) 12/09/24 09:45 ABG pCO2 38.0 mmHg (35.0-45.0) 12/09/24 09:45 ABG pO2 57.0 mmHg (80.0-100.0) L 12/09/24 09:45 ABG HCO3 25.2 mmol/L (22-26) 12/09/24 09:45 ABG O2 Saturation 90.0 % (90-100) 12/09/24 09:45 ABG Base Excess 1.0 mmol/L (-2.0-2.0) 12/09/24 09:45 Pipe Test N/a 12/09/24 09:45 A-a Gradient 45.0 mmHg 12/09/24 09:45 FiO2 21.0 12/09/24 09:45 Blood Gas Comments Pt martine well elj 12/09/24 09:45 Sodium 139 mmol/L (136-145) 12/15/24 05:30 Corrected Sodium TNP 12/15/24 05:30 Potassium 3.9 mmol/L (3.5-5.1) 12/15/24 05:30 Chloride 102 mmol/L (98-107) 12/15/24 05:30 Carbon Dioxide 29.2 mmol/L (21-32) 12/15/24 05:30 BUN 17 mg/dL (7-18) 12/15/24 05:30 Creatinine 0.81 mg/dL (0.70-1.30) 12/15/24 05:30 Est GFR (MDRD) Af Amer > 60 (>60) 12/15/24 05:30 Est GFR (MDRD) Non-Af > 60 (>60) 12/15/24 05:30 Glucose 102 mg/dL (65-99) H 12/15/24 05:30 Calcium 8.9 mg/dL (8.5-10.1) 12/15/24 05:30 Corrected Calcium 9.5 mg/dL (8.5-10.1) 12/15/24 05:30 Magnesium 2.0 mg/dL (2.0-2.9) 12/11/24 05:20 Total Bilirubin 0.60 mg/dL (0.2-1.0) 12/15/24 05:30 AST 19 Units/L (15-37) 12/15/24 05:30 ALT 20 Units/L (12-78) 12/15/24 05:30 Alkaline Phosphatase 75 Units/L (46-116) 12/15/24 05:30 Creatine Kinase 169 Units/L (39-308) 12/09/24 08:56 Troponin I High Sens 18.8 ng/L (4.0-60.0) 12/10/24 05:35 B-Natriuretic Peptide 12.9 pg/mL (0-79) 12/09/24 08:56 Total Protein 6.6 g/dL (6.4-8.2) 12/15/24 05:30 Albumin 3.3 g/dL (3.4-5.0) L 12/15/24 05:30 Globulin 3.3 g/dL (2.5-4.5) 12/15/24 05:30 Albumin/Globulin Ratio 1.0 Ratio (1.1-2.1) L 12/15/24 05:30 Triglycerides 70 mg/dL (0-150) 12/10/24 05:35 Cholesterol 189 mg/dL (0-200) 12/10/24 05:35 LDL Cholesterol, Calc 111 mg/dL (0-100) H 12/10/24 05:35 HDL Cholesterol 64 mg/dL (40-60) H 12/10/24 05:35 Cholesterol/HDL Ratio 3.0 (0.0-5.0) 12/10/24 05:35 Specimen Type Clean catch urine 12/09/24 10:10 Urine Color Straw (YELLOW) 12/09/24 10:10 Urine Appearance Clear (CLEAR) 12/09/24 10:10 Urine pH 6.0 (5.0 - 8.0) 12/09/24 10:10 Ur Specific [place] 1.010 (1.000-1.030) 12/09/24 10:10 Urine Protein 1+ (NEGATIVE) 12/09/24 10:10 Urine Glucose (UA) Negative (NEGATIVE) 12/09/24 10:10 Urine Ketones Negative (NEGATIVE) 12/09/24 10:10 Urine Blood Negative (NEGATIVE) 12/09/24 10:10 Urine Nitrite Negative (NEGATIVE) 12/09/24 10:10 Urine Bilirubin Negative (NEGATIVE) 12/09/24 10:10 Urine Urobilinogen Normal (NORMAL) 12/09/24 10:10 Ur Leukocyte Esterase Negative (NEGATIVE) 12/09/24 10:10 Urine RBC None seen /HPF (0-3) 12/09/24 10:10 Urine WBC 0-2 /HPF (0-5) 12/09/24 10:10 Ur Squamous Epith Cells Rare /HPF (NEGATIVE) 12/09/24 10:10 Urine Bacteria Negative /HPF (NEGATIVE) 12/09/24 10:10 Urine Mucus Rare /HPF (NEGATIVE) 12/09/24 10:10 Ur Culture Indicated? No/not indicated 12/09/24 10:10 Assessment and Plan 1: recurrent spontaneous Lt pneumothorax . s/p placement of chest tube . same plan . Future recurrence is an indication for thoracoscopy and wedge resection of the involved lobe. Problem Patient Problems: Patient Problems (Updated 12/09/24 @ 13:58 by DARSHAN GARZON) Pneumothorax (Acute) J93.9 Acute dyspnea (Acute) R06.00
[2024-12-16 06:10] LABS: BASOPHILS # (AUTO) 0.1 X10^3/uL (0.0-0.1); BASOPHILS % (AUTO) 0.8 % (0.2-1.0); HEMATOCRIT 40.5 % (42.0-54.0); LYMPHOCYTES # (AUTO) 1.4 X10^3/uL (1.3-2.9); LYMPHOCYTES % (AUTO) 12.2 % (21.0-51.0); MEAN CORPUSCULAR HEMOGLOBIN 32.9 pg (27.0-34.0); MEAN CORPUSCULAR HGB CONC 34.6 g/dL (33.0-35.0); MEAN CORPUSCULAR VOLUME 95.2 fL (80.0-100.0); MEAN PLATELET VOLUME 7.8 fL (7.4-11.0); MONOCYTES # (AUTO) 0.9 x10^3/uL (0.3-0.8); MONOCYTES % (AUTO) 8.2 % (0.0-13.0); NEUTROPHILS # (AUTO) 8.9 x10^3/uL (2.2-4.8); NEUTROPHILS % (AUTO) 78.8 % (42.0-75.0); PLATELET COUNT 282 X10^3/uL (150.0-450.0); RED BLOOD COUNT 4.26 X10^6/uL (4.7-6.0); RED CELL DISTRIBUTION WIDTH 12.9 % (11.6-16.5); WHITE BLOOD COUNT 11.3 X10^3/uL (3.6-10.0)
[2024-12-16 06:50] LABS: ALANINE AMINOTRANSFERASE 21 Units/L (12-78); ALBUMIN 3.2 g/dL (3.4-5.0); ALKALINE PHOSPHATASE 76 Units/L (46-116); ASPARTATE AMINO TRANSFERASE 18 Units/L (15-37); BLOOD UREA NITROGEN 16 mg/dL (7-18); CALCIUM 9.1 mg/dL (8.5-10.1); CARBON DIOXIDE 29.7 mmol/L (21-32); CHLORIDE 103 mmol/L (98-107); COR CA(FOR HYPOALB) 9.7 mg/dL (8.5-10.1); CREATININE 0.82 mg/dL (0.70-1.30); GLUCOSE 104 mg/dL (65-99); SODIUM 139 mmol/L (136-145); TOTAL PROTEIN 6.8 g/dL (6.4-8.2); eGFR NON BLACK RACES > 60 (>60)
--- NOTE | 2024-12-16 11:54 | RAD ---
EXAM: Portable chest HISTORY: Follow-up pneumothorax COMPARISON: 12/12/2023 9:13 a.m. FINDINGS: Heart size is normal. Rhiannon are normal. Lungs are mildly hyperinflated but free of acute infiltrat es. There is a left chest tube in place. There has been a significant decrease in the size of the p atient's left pneumothorax when compared with examination at 9:13 a.m. a small residual left apical p neumothorax is identified as is a small amount of pneumothorax in the left costophrenic angle. IMPRESSION: Marked decrease in the left pneumothorax with small residual left apical pneumothorax and pneumothor ax in the left costophrenic angle No infiltrates THIS IS AN ELECTRONICALLY VERIFIED FINAL REPORT 12/16/2024 11:51 AM - Electronically signed by Miguel Mcgowan MD
--- NOTE | 2024-12-16 14:13 | DR.PROGNOT ---
HOSPITAL PROGRESS NOTE Progress Note for Day of: Progress Note Date: 12/16/24 Chief Complaint Chief Complaint: No changes, doing fairly well , no significant CP . no SOB . chest X Ray showed expanded Lt lung . normal lab work . O2 sat 93 afebrile . Cruz is clear . Attempted clamping the chest tube was not successful, patient developed large pneumothorax required reopening the chest tube and will be kept for few more days. Chest x-ray after unclamping it showed good expansion of the lung with only small apical pneumothorax. Patient was stable to go and no further complications. Past Medical Family Social History Past Med/Fam/Surg Hx: No changes since H&P Allergies: Allergies No Known Drug Allergies Allergy (Unknown, Verified 12/09/24 08:56) Onset Date: 01/25/2022 Vital Signs Vital Signs: Vital Signs Temperature 98.1 F Temperature 97.6 F Pulse Rate [Left Radial] 87 Pulse Rate [Left Radial] 108 Pulse Rate 104 Respiratory Rate 19 Respiratory Rate 20 Respiratory Rate 20 Blood Pressure [Left Arm] 111/70 Blood Pressure [Left Arm] 118/77 O2 Sat by Pulse Oximetry 98 O2 Sat by Pulse Oximetry 95 O2 Sat by Pulse Oximetry 94 Physical Exam Oriented: Normal Eyes: Normal Ear: Normal Nose: Normal Throat: Normal Respiratory: Normal and OTHER (chest tube in place ..) Speech Pattern: Unable to speak Laboratory and Diagnostics 12/16/24 05:20 12/16/24 05:20 Labs: 12/10/24 13:29 Sputum - Expectorated Sputum Sputum Culture - Final Klebsiella Pneumoniae 12/10/24 13:29 Sputum - Expectorated Sputum - Final Laboratory WBC 11.3 X10^3/uL (3.6-10.0) H 12/16/24 05:20 RBC 4.26 X10^6/uL (4.7-6.0) L 12/16/24 05:20 Hgb 14.0 g/dL (13.5-18.0) 12/16/24 05:20 Hct 40.5 % (42.0-54.0) L 12/16/24 05:20 MCV 95.2 fL (80.0-100.0) 12/16/24 05:20 MCH 32.9 pg (27.0-34.0) 12/16/24 05:20 MCHC 34.6 g/dL (33.0-35.0) 12/16/24 05:20 RDW 12.9 % (11.6-16.5) 12/16/24 05:20 Plt Count 282 X10^3/uL (150.0-450.0) 12/16/24 05:20 MPV 7.8 fL (7.4-11.0) 12/16/24 05:20 Neut % (Auto) 78.8 % (42.0-75.0) H 12/16/24 05:20 Lymph % (Auto) 12.2 % (21.0-51.0) L 12/16/24 05:20 [place] % (Auto) 8.2 % (0.0-13.0) 12/16/24 05:20 Eos % (Auto) 0.0 % (0.9-2.9) L 12/16/24 05:20 Baso % (Auto) 0.8 % (0.2-1.0) 12/16/24 05:20 Neut # (Auto) 8.9 x10^3/uL (2.2-4.8) H 12/16/24 05:20 Lymph # (Auto) 1.4 X10^3/uL (1.3-2.9) 12/16/24 05:20 [place] # (Auto) 0.9 x10^3/uL (0.3-0.8) H 12/16/24 05:20 Eos # (Auto) 0.0 x10^3/uL (0.0-0.2) 12/16/24 05:20 Baso # (Auto) 0.1 X10^3/uL (0.0-0.1) 12/16/24 05:20 Absolute Nucleated RBC 0.0 /100WBC 12/16/24 05:20 PT 13.2 SECONDS (11.8-14.3) 12/09/24 08:56 INR Target Range - 12/09/24 08:56 INR 1.02 (0.8-1.3) 12/09/24 08:56 D-Dimer < 0.27 ug/ml (0.0-0.57) 12/09/24 08:56 Sample Site Lbra 12/09/24 09:45 ABG pH 7.430 (7.35-7.45) 12/09/24 09:45 ABG pCO2 38.0 mmHg (35.0-45.0) 12/09/24 09:45 ABG pO2 57.0 mmHg (80.0-100.0) L 12/09/24 09:45 ABG HCO3 25.2 mmol/L (22-26) 12/09/24 09:45 ABG O2 Saturation 90.0 % (90-100) 12/09/24 09:45 ABG Base Excess 1.0 mmol/L (-2.0-2.0) 12/09/24 09:45 Pipe Test N/a 12/09/24 09:45 A-a Gradient 45.0 mmHg 12/09/24 09:45 FiO2 21.0 12/09/24 09:45 Blood Gas Comments Pt martine well elj 12/09/24 09:45 Sodium 139 mmol/L (136-145) 12/16/24 05:20 Corrected Sodium TNP 12/16/24 05:20 Potassium 4.0 mmol/L (3.5-5.1) 12/16/24 05:20 Chloride 103 mmol/L (98-107) 12/16/24 05:20 Carbon Dioxide 29.7 mmol/L (21-32) 12/16/24 05:20 BUN 16 mg/dL (7-18) 12/16/24 05:20 Creatinine 0.82 mg/dL (0.70-1.30) 12/16/24 05:20 Est GFR (MDRD) Af Amer > 60 (>60) 12/16/24 05:20 Est GFR (MDRD) Non-Af > 60 (>60) 12/16/24 05:20 Glucose 104 mg/dL (65-99) H 12/16/24 05:20 Calcium 9.1 mg/dL (8.5-10.1) 12/16/24 05:20 Corrected Calcium 9.7 mg/dL (8.5-10.1) 12/16/24 05:20 Magnesium 2.0 mg/dL (2.0-2.9) 12/11/24 05:20 Total Bilirubin 0.60 mg/dL (0.2-1.0) 12/16/24 05:20 AST 18 Units/L (15-37) 12/16/24 05:20 ALT 21 Units/L (12-78) 12/16/24 05:20 Alkaline Phosphatase 76 Units/L (46-116) 12/16/24 05:20 Creatine Kinase 169 Units/L (39-308) 12/09/24 08:56 Troponin I High Sens 18.8 ng/L (4.0-60.0) 12/10/24 05:35 B-Natriuretic Peptide 12.9 pg/mL (0-79) 12/09/24 08:56 Total Protein 6.8 g/dL (6.4-8.2) 12/16/24 05:20 Albumin 3.2 g/dL (3.4-5.0) L 12/16/24 05:20 Globulin 3.6 g/dL (2.5-4.5) 12/16/24 05:20 Albumin/Globulin Ratio 0.9 Ratio (1.1-2.1) L 12/16/24 05:20 Triglycerides 70 mg/dL (0-150) 12/10/24 05:35 Cholesterol 189 mg/dL (0-200) 12/10/24 05:35 LDL Cholesterol, Calc 111 mg/dL (0-100) H 12/10/24 05:35 HDL Cholesterol 64 mg/dL (40-60) H 12/10/24 05:35 Cholesterol/HDL Ratio 3.0 (0.0-5.0) 12/10/24 05:35 Specimen Type Clean catch urine 12/09/24 10:10 Urine Color Straw (YELLOW) 12/09/24 10:10 Urine Appearance Clear (CLEAR) 12/09/24 10:10 Urine pH 6.0 (5.0 - 8.0) 12/09/24 10:10 Ur Specific [place] 1.010 (1.000-1.030) 12/09/24 10:10 Urine Protein 1+ (NEGATIVE) 12/09/24 10:10 Urine Glucose (UA) Negative (NEGATIVE) 12/09/24 10:10 Urine Ketones Negative (NEGATIVE) 12/09/24 10:10 Urine Blood Negative (NEGATIVE) 12/09/24 10:10 Urine Nitrite Negative (NEGATIVE) 12/09/24 10:10 Urine Bilirubin Negative (NEGATIVE) 12/09/24 10:10 Urine Urobilinogen Normal (NORMAL) 12/09/24 10:10 Ur Leukocyte Esterase Negative (NEGATIVE) 12/09/24 10:10 Urine RBC None seen /HPF (0-3) 12/09/24 10:10 Urine WBC 0-2 /HPF (0-5) 12/09/24 10:10 Ur Squamous Epith Cells Rare /HPF (NEGATIVE) 12/09/24 10:10 Urine Bacteria Negative /HPF (NEGATIVE) 12/09/24 10:10 Urine Mucus Rare /HPF (NEGATIVE) 12/09/24 10:10 Ur Culture Indicated? No/not indicated 12/09/24 10:10 Assessment and Plan 1: recurrent spontaneous Lt pneumothorax . s/p placement of chest tube . The chest tube was unclamped and will keep it for few more days. Problem Patient Problems: Patient Problems (Updated 12/09/24 @ 13:58 by DARSHAN GARZON) Pneumothorax (Acute) J93.9 Acute dyspnea (Acute) R06.00
[2024-12-17 05:56] LABS: BASOPHILS # (AUTO) 0.1 X10^3/uL (0.0-0.1); BASOPHILS % (AUTO) 1.4 % (0.2-1.0); HEMATOCRIT 38.1 % (42.0-54.0); HEMOGLOBIN 13.1 g/dL (13.5-18.0); LYMPHOCYTES # (AUTO) 2.1 X10^3/uL (1.3-2.9); LYMPHOCYTES % (AUTO) 30.7 % (21.0-51.0); MEAN CORPUSCULAR HEMOGLOBIN 32.5 pg (27.0-34.0); MEAN CORPUSCULAR HGB CONC 34.3 g/dL (33.0-35.0); MEAN CORPUSCULAR VOLUME 94.8 fL (80.0-100.0); MEAN PLATELET VOLUME 7.6 fL (7.4-11.0); MONOCYTES # (AUTO) 0.6 x10^3/uL (0.3-0.8); MONOCYTES % (AUTO) 9.5 % (0.0-13.0); NEUTROPHILS # (AUTO) 3.9 x10^3/uL (2.2-4.8); NEUTROPHILS % (AUTO) 58.4 % (42.0-75.0); PLATELET COUNT 280 X10^3/uL (150.0-450.0); RED BLOOD COUNT 4.02 X10^6/uL (4.7-6.0); RED CELL DISTRIBUTION WIDTH 12.6 % (11.6-16.5); WHITE BLOOD COUNT 6.7 X10^3/uL (3.6-10.0)
[2024-12-17 06:10] LABS: ALANINE AMINOTRANSFERASE 20 Units/L (12-78); ALBUMIN 3.1 g/dL (3.4-5.0); ALKALINE PHOSPHATASE 69 Units/L (46-116); ASPARTATE AMINO TRANSFERASE 17 Units/L (15-37); BLOOD UREA NITROGEN 14 mg/dL (7-18); CALCIUM 8.5 mg/dL (8.5-10.1); CARBON DIOXIDE 29.1 mmol/L (21-32); CHLORIDE 103 mmol/L (98-107); COR CA(FOR HYPOALB) 9.2 mg/dL (8.5-10.1); CREATININE 0.77 mg/dL (0.70-1.30); GLUCOSE 100 mg/dL (65-99); MAGNESIUM 2.1 mg/dL (2.0-2.9); POTASSIUM 3.6 mmol/L (3.5-5.1); SODIUM 138 mmol/L (136-145); TOTAL PROTEIN 6.4 g/dL (6.4-8.2); eGFR NON BLACK RACES > 60 (>60)
--- NOTE | 2024-12-17 07:29 | RAD ---
EXAMINATION: CHEST, 1 VIEW HISTORY: LEFT PNEUMOTHORAX, CHEST TUBE ; COPD ORTHO . COMPARISON STUDY: 12/16/2024 TECHNIQUE: One view FINDINGS: Left-sided chest tube projecting towards the meme. Left apical pneumothorax is decreased and is less than 5%. Heart size is normal. Hyperinflated lungs with no acute infiltrates. Hilar and mediastin al structures and bony structures unchanged. EKG leads overlie the chest. IMPRESSION: Left-sided chest tube in place. Decrease in left apical pneumothorax. No new infiltrates THIS IS AN ELECTRONICALLY VERIFIED FINAL REPORT 12/17/2024 7:26 AM - Electronically signed by Dante Figueroa MD
[2024-12-17] MEDS ORDERED: CONSULT PHARMACY - POTASSIUM & MAGNESIUM XX SCH (08:00)
[2024-12-17] MEDS: LR 1,000 ML IV 1,000 ML IV SCH (08:44)
[2024-12-17] MEDS: K-DUR TAB 20 MEQ PO SCH (08:45)
[2024-12-17] MEDS: MAG-OX TAB PO SCH (08:45)
--- NOTE | 2024-12-17 09:19 | DR.PROGNOT ---
HOSPITAL PROGRESS NOTE Progress Note for Day of: Progress Note Date: 12/17/24 Chief Complaint Chief Complaint: No changes, doing fairly well , no significant CP . no SOB . chest X Ray showed expanded Lt lung with less than 5% apical pneumothorax l. normal lab work . O2 sat 99 afebrile . Cruz is clear . Past Medical Family Social History Past Med/Fam/Surg Hx: No changes since H&P Allergies: Allergies No Known Drug Allergies Allergy (Unknown, Verified 12/09/24 08:56) Onset Date: 01/25/2022 Vital Signs Vital Signs: Vital Signs Temperature 97.8 F Pulse Rate [Left Radial] 67 Respiratory Rate 22 Respiratory Rate 20 Respiratory Rate 24 Respiratory Rate 22 Blood Pressure [Left Arm] 106/68 O2 Sat by Pulse Oximetry 99 Physical Exam Oriented: Normal Eyes: Normal Ear: Normal Nose: Normal Throat: Normal Respiratory: Normal and OTHER (chest tube in place ..) Speech Pattern: Unable to speak Laboratory and Diagnostics 12/17/24 05:28 12/17/24 05:28 Labs: 12/10/24 13:29 Sputum - Expectorated Sputum Sputum Culture - Final Klebsiella Pneumoniae 12/10/24 13:29 Sputum - Expectorated Sputum - Final Laboratory WBC 6.7 X10^3/uL (3.6-10.0) 12/17/24 05:28 RBC 4.02 X10^6/uL (4.7-6.0) L 12/17/24 05:28 Hgb 13.1 g/dL (13.5-18.0) L 12/17/24 05:28 Hct 38.1 % (42.0-54.0) L 12/17/24 05:28 MCV 94.8 fL (80.0-100.0) 12/17/24 05:28 MCH 32.5 pg (27.0-34.0) 12/17/24 05:28 MCHC 34.3 g/dL (33.0-35.0) 12/17/24 05:28 RDW 12.6 % (11.6-16.5) 12/17/24 05:28 Plt Count 280 X10^3/uL (150.0-450.0) 12/17/24 05:28 MPV 7.6 fL (7.4-11.0) 12/17/24 05:28 Neut % (Auto) 58.4 % (42.0-75.0) 12/17/24 05:28 Lymph % (Auto) 30.7 % (21.0-51.0) 12/17/24 05:28 [place] % (Auto) 9.5 % (0.0-13.0) 12/17/24 05:28 Eos % (Auto) 0.0 % (0.9-2.9) L 12/17/24 05:28 Baso % (Auto) 1.4 % (0.2-1.0) H 12/17/24 05:28 Neut # (Auto) 3.9 x10^3/uL (2.2-4.8) 12/17/24 05:28 Lymph # (Auto) 2.1 X10^3/uL (1.3-2.9) 12/17/24 05:28 [place] # (Auto) 0.6 x10^3/uL (0.3-0.8) 12/17/24 05:28 Eos # (Auto) 0.0 x10^3/uL (0.0-0.2) 12/17/24 05:28 Baso # (Auto) 0.1 X10^3/uL (0.0-0.1) 12/17/24 05:28 Absolute Nucleated RBC 0.0 /100WBC 12/17/24 05:28 PT 13.2 SECONDS (11.8-14.3) 12/09/24 08:56 INR Target Range - 12/09/24 08:56 INR 1.02 (0.8-1.3) 12/09/24 08:56 D-Dimer < 0.27 ug/ml (0.0-0.57) 12/09/24 08:56 Sample Site Lbra 12/09/24 09:45 ABG pH 7.430 (7.35-7.45) 12/09/24 09:45 ABG pCO2 38.0 mmHg (35.0-45.0) 12/09/24 09:45 ABG pO2 57.0 mmHg (80.0-100.0) L 12/09/24 09:45 ABG HCO3 25.2 mmol/L (22-26) 12/09/24 09:45 ABG O2 Saturation 90.0 % (90-100) 12/09/24 09:45 ABG Base Excess 1.0 mmol/L (-2.0-2.0) 12/09/24 09:45 Pipe Test N/a 12/09/24 09:45 A-a Gradient 45.0 mmHg 12/09/24 09:45 FiO2 21.0 12/09/24 09:45 Blood Gas Comments Pt martine well elj 12/09/24 09:45 Sodium 138 mmol/L (136-145) 12/17/24 05:28 Corrected Sodium TNP 12/17/24 05:28 Potassium 3.6 mmol/L (3.5-5.1) 12/17/24 05:28 Chloride 103 mmol/L (98-107) 12/17/24 05:28 Carbon Dioxide 29.1 mmol/L (21-32) 12/17/24 05:28 BUN 14 mg/dL (7-18) 12/17/24 05:28 Creatinine 0.77 mg/dL (0.70-1.30) 12/17/24 05:28 Est GFR (MDRD) Af Amer > 60 (>60) 12/17/24 05:28 Est GFR (MDRD) Non-Af > 60 (>60) 12/17/24 05:28 Glucose 100 mg/dL (65-99) H 12/17/24 05:28 Calcium 8.5 mg/dL (8.5-10.1) 12/17/24 05:28 Corrected Calcium 9.2 mg/dL (8.5-10.1) 12/17/24 05:28 Magnesium 2.1 mg/dL (2.0-2.9) 12/17/24 05:28 Total Bilirubin 0.50 mg/dL (0.2-1.0) 12/17/24 05:28 AST 17 Units/L (15-37) 12/17/24 05:28 ALT 20 Units/L (12-78) 12/17/24 05:28 Alkaline Phosphatase 69 Units/L (46-116) 12/17/24 05:28 Creatine Kinase 169 Units/L (39-308) 12/09/24 08:56 Troponin I High Sens 18.8 ng/L (4.0-60.0) 12/10/24 05:35 B-Natriuretic Peptide 12.9 pg/mL (0-79) 12/09/24 08:56 Total Protein 6.4 g/dL (6.4-8.2) 12/17/24 05:28 Albumin 3.1 g/dL (3.4-5.0) L 12/17/24 05:28 Globulin 3.3 g/dL (2.5-4.5) 12/17/24 05:28 Albumin/Globulin Ratio 0.9 Ratio (1.1-2.1) L 12/17/24 05:28 Triglycerides 70 mg/dL (0-150) 12/10/24 05:35 Cholesterol 189 mg/dL (0-200) 12/10/24 05:35 LDL Cholesterol, Calc 111 mg/dL (0-100) H 12/10/24 05:35 HDL Cholesterol 64 mg/dL (40-60) H 12/10/24 05:35 Cholesterol/HDL Ratio 3.0 (0.0-5.0) 12/10/24 05:35 Specimen Type Clean catch urine 12/09/24 10:10 Urine Color Straw (YELLOW) 12/09/24 10:10 Urine Appearance Clear (CLEAR) 12/09/24 10:10 Urine pH 6.0 (5.0 - 8.0) 12/09/24 10:10 Ur Specific [place] 1.010 (1.000-1.030) 12/09/24 10:10 Urine Protein 1+ (NEGATIVE) 12/09/24 10:10 Urine Glucose (UA) Negative (NEGATIVE) 12/09/24 10:10 Urine Ketones Negative (NEGATIVE) 12/09/24 10:10 Urine Blood Negative (NEGATIVE) 12/09/24 10:10 Urine Nitrite Negative (NEGATIVE) 12/09/24 10:10 Urine Bilirubin Negative (NEGATIVE) 12/09/24 10:10 Urine Urobilinogen Normal (NORMAL) 12/09/24 10:10 Ur Leukocyte Esterase Negative (NEGATIVE) 12/09/24 10:10 Urine RBC None seen /HPF (0-3) 12/09/24 10:10 Urine WBC 0-2 /HPF (0-5) 12/09/24 10:10 Ur Squamous Epith Cells Rare /HPF (NEGATIVE) 12/09/24 10:10 Urine Bacteria Negative /HPF (NEGATIVE) 12/09/24 10:10 Urine Mucus Rare /HPF (NEGATIVE) 12/09/24 10:10 Ur Culture Indicated? No/not indicated 12/09/24 10:10 Assessment and Plan 1: recurrent spontaneous Lt pneumothorax . s/p placement of chest tube . The chest tube was unclamped and will keep it for few more days. Problem Patient Problems: Patient Problems (Updated 12/09/24 @ 13:58 by DARSHAN GARZON) Pneumothorax (Acute) J93.9 Acute dyspnea (Acute) R06.00
[2024-12-18 05:41] LABS: BASOPHILS # (AUTO) 0.1 X10^3/uL (0.0-0.1); BASOPHILS % (AUTO) 1.1 % (0.2-1.0); HEMOGLOBIN 12.8 g/dL (13.5-18.0); LYMPHOCYTES # (AUTO) 1.8 X10^3/uL (1.3-2.9); LYMPHOCYTES % (AUTO) 25.2 % (21.0-51.0); MEAN CORPUSCULAR HEMOGLOBIN 32.8 pg (27.0-34.0); MEAN CORPUSCULAR HGB CONC 34.5 g/dL (33.0-35.0); MEAN CORPUSCULAR VOLUME 94.9 fL (80.0-100.0); MEAN PLATELET VOLUME 7.3 fL (7.4-11.0); MONOCYTES # (AUTO) 0.7 x10^3/uL (0.3-0.8); MONOCYTES % (AUTO) 9.5 % (0.0-13.0); NEUTROPHILS # (AUTO) 4.5 x10^3/uL (2.2-4.8); NEUTROPHILS % (AUTO) 64.2 % (42.0-75.0); PLATELET COUNT 295 X10^3/uL (150.0-450.0); RED CELL DISTRIBUTION WIDTH 12.5 % (11.6-16.5)
[2024-12-18 06:00] LABS: ALANINE AMINOTRANSFERASE 20 Units/L (12-78); ALBUMIN 3.1 g/dL (3.4-5.0); ALKALINE PHOSPHATASE 71 Units/L (46-116); ASPARTATE AMINO TRANSFERASE 18 Units/L (15-37); BLOOD UREA NITROGEN 13 mg/dL (7-18); CALCIUM 8.6 mg/dL (8.5-10.1); CARBON DIOXIDE 28.3 mmol/L (21-32); CHLORIDE 104 mmol/L (98-107); COR CA(FOR HYPOALB) 9.3 mg/dL (8.5-10.1); GLUCOSE 106 mg/dL (65-99); MAGNESIUM 1.7 mg/dL (2.0-2.9); POTASSIUM 3.9 mmol/L (3.5-5.1); SODIUM 138 mmol/L (136-145); TOTAL PROTEIN 6.3 g/dL (6.4-8.2); eGFR NON BLACK RACES > 60 (>60)
--- NOTE | 2024-12-18 06:11 | RAD ---
EXAM: CHEST, 1 VIEW HISTORY: PNEUMOTHORAX, CHEST TUBE ; COMPARISON: 12/17/2024 FINDINGS: The cardiomediastinal silhouette is stable. Left chest tube unchanged. No acute airspace disease. Possible trace residual left pneumothorax. No acute osseous abnormality. IMPRESSION: Similar appearance of left chest tube with possible trace left apical pneumothorax. THIS IS AN ELECTRONICALLY VERIFIED FINAL REPORT 12/18/2024 6:07 AM - Electronically signed by Miguel Mcgowan MD
[2024-12-18] MEDS ORDERED: CONSULT PHARMACY - POTASSIUM & MAGNESIUM XX SCH (08:00)
--- NOTE | 2024-12-18 08:59 | RAD ---
EXAM:CHEST, 1 VIEWHISTORY:CHEST TUBE;COMPARISON:12/15/2024TECHNIQUE:AP portableFINDINGS:Stable cardiac silhouette. Left-sided chest tube is in unchanged position. New large left pneumothorax with near complete left lung collapse. No large pleural effusion.IMPRESSION:Left-sided chest tube in place with new large left pneumothorax and near complete left lung collapse.THIS IS AN ELECTRONICALLY VERIFIED FINAL REPORT12/16/2024 10:28 AM - Electronically signed by Chepe Arndt MD
--- NOTE | 2024-12-18 09:47 | DR.PROGNOT ---
HOSPITAL PROGRESS NOTE Progress Note for Day of: Progress Note Date: 12/18/24 Chief Complaint Chief Complaint: No changes, doing fairly well , no significant CP . no SOB . chest X Ray showed expanded Lt lung with a trace apical pneumothorax l. normal lab work .low Mg O2 sat 99 afebrile . Cruz is clear . Past Medical Family Social History Past Med/Fam/Surg Hx: No changes since H&P Allergies: Allergies No Known Drug Allergies Allergy (Unknown, Verified 12/09/24 08:56) Onset Date: 01/25/2022 Vital Signs Vital Signs: Vital Signs Temperature 98.0 F Pulse Rate [Left Radial] 72 Pulse Rate 77 Respiratory Rate 16 Respiratory Rate 21 Respiratory Rate 18 Blood Pressure [Left Arm] 118/72 O2 Sat by Pulse Oximetry 99 O2 Sat by Pulse Oximetry 98 Physical Exam Oriented: Normal Eyes: Normal Ear: Normal Nose: Normal Throat: Normal Respiratory: Normal and OTHER (chest tube in place ..) Speech Pattern: Unable to speak Laboratory and Diagnostics 12/18/24 05:18 12/18/24 05:18 Labs: 12/10/24 13:29 Sputum - Expectorated Sputum Sputum Culture - Final Klebsiella Pneumoniae 12/10/24 13:29 Sputum - Expectorated Sputum - Final Laboratory WBC 7.0 X10^3/uL (3.6-10.0) 12/18/24 05:18 RBC 3.90 X10^6/uL (4.7-6.0) L 12/18/24 05:18 Hgb 12.8 g/dL (13.5-18.0) L 12/18/24 05:18 Hct 37.0 % (42.0-54.0) L 12/18/24 05:18 MCV 94.9 fL (80.0-100.0) 12/18/24 05:18 MCH 32.8 pg (27.0-34.0) 12/18/24 05:18 MCHC 34.5 g/dL (33.0-35.0) 12/18/24 05:18 RDW 12.5 % (11.6-16.5) 12/18/24 05:18 Plt Count 295 X10^3/uL (150.0-450.0) 12/18/24 05:18 MPV 7.3 fL (7.4-11.0) L 12/18/24 05:18 Neut % (Auto) 64.2 % (42.0-75.0) 12/18/24 05:18 Lymph % (Auto) 25.2 % (21.0-51.0) 12/18/24 05:18 [place] % (Auto) 9.5 % (0.0-13.0) 12/18/24 05:18 Eos % (Auto) 0.0 % (0.9-2.9) L 12/18/24 05:18 Baso % (Auto) 1.1 % (0.2-1.0) H 12/18/24 05:18 Neut # (Auto) 4.5 x10^3/uL (2.2-4.8) 12/18/24 05:18 Lymph # (Auto) 1.8 X10^3/uL (1.3-2.9) 12/18/24 05:18 [place] # (Auto) 0.7 x10^3/uL (0.3-0.8) 12/18/24 05:18 Eos # (Auto) 0.0 x10^3/uL (0.0-0.2) 12/18/24 05:18 Baso # (Auto) 0.1 X10^3/uL (0.0-0.1) 12/18/24 05:18 Absolute Nucleated RBC 0.0 /100WBC 12/18/24 05:18 PT 13.2 SECONDS (11.8-14.3) 12/09/24 08:56 INR Target Range - 12/09/24 08:56 INR 1.02 (0.8-1.3) 12/09/24 08:56 D-Dimer < 0.27 ug/ml (0.0-0.57) 12/09/24 08:56 Sample Site Lbra 12/09/24 09:45 ABG pH 7.430 (7.35-7.45) 12/09/24 09:45 ABG pCO2 38.0 mmHg (35.0-45.0) 12/09/24 09:45 ABG pO2 57.0 mmHg (80.0-100.0) L 12/09/24 09:45 ABG HCO3 25.2 mmol/L (22-26) 12/09/24 09:45 ABG O2 Saturation 90.0 % (90-100) 12/09/24 09:45 ABG Base Excess 1.0 mmol/L (-2.0-2.0) 12/09/24 09:45 Pipe Test N/a 12/09/24 09:45 A-a Gradient 45.0 mmHg 12/09/24 09:45 FiO2 21.0 12/09/24 09:45 Blood Gas Comments Pt martine well elj 12/09/24 09:45 Sodium 138 mmol/L (136-145) 12/18/24 05:18 Corrected Sodium TNP 12/18/24 05:18 Potassium 3.9 mmol/L (3.5-5.1) 12/18/24 05:18 Chloride 104 mmol/L (98-107) 12/18/24 05:18 Carbon Dioxide 28.3 mmol/L (21-32) 12/18/24 05:18 BUN 13 mg/dL (7-18) 12/18/24 05:18 Creatinine 0.80 mg/dL (0.70-1.30) 12/18/24 05:18 Est GFR (MDRD) Af Amer > 60 (>60) 12/18/24 05:18 Est GFR (MDRD) Non-Af > 60 (>60) 12/18/24 05:18 Glucose 106 mg/dL (65-99) H 12/18/24 05:18 Calcium 8.6 mg/dL (8.5-10.1) 12/18/24 05:18 Corrected Calcium 9.3 mg/dL (8.5-10.1) 12/18/24 05:18 Magnesium 1.7 mg/dL (2.0-2.9) L 12/18/24 05:18 Total Bilirubin 0.30 mg/dL (0.2-1.0) 12/18/24 05:18 AST 18 Units/L (15-37) 12/18/24 05:18 ALT 20 Units/L (12-78) 12/18/24 05:18 Alkaline Phosphatase 71 Units/L (46-116) 12/18/24 05:18 Creatine Kinase 169 Units/L (39-308) 12/09/24 08:56 Troponin I High Sens 18.8 ng/L (4.0-60.0) 12/10/24 05:35 B-Natriuretic Peptide 12.9 pg/mL (0-79) 12/09/24 08:56 Total Protein 6.3 g/dL (6.4-8.2) L 12/18/24 05:18 Albumin 3.1 g/dL (3.4-5.0) L 12/18/24 05:18 Globulin 3.2 g/dL (2.5-4.5) 12/18/24 05:18 Albumin/Globulin Ratio 1.0 Ratio (1.1-2.1) L 12/18/24 05:18 Triglycerides 70 mg/dL (0-150) 12/10/24 05:35 Cholesterol 189 mg/dL (0-200) 12/10/24 05:35 LDL Cholesterol, Calc 111 mg/dL (0-100) H 12/10/24 05:35 HDL Cholesterol 64 mg/dL (40-60) H 12/10/24 05:35 Cholesterol/HDL Ratio 3.0 (0.0-5.0) 12/10/24 05:35 Specimen Type Clean catch urine 12/09/24 10:10 Urine Color Straw (YELLOW) 12/09/24 10:10 Urine Appearance Clear (CLEAR) 12/09/24 10:10 Urine pH 6.0 (5.0 - 8.0) 12/09/24 10:10 Ur Specific [place] 1.010 (1.000-1.030) 12/09/24 10:10 Urine Protein 1+ (NEGATIVE) 12/09/24 10:10 Urine Glucose (UA) Negative (NEGATIVE) 12/09/24 10:10 Urine Ketones Negative (NEGATIVE) 12/09/24 10:10 Urine Blood Negative (NEGATIVE) 12/09/24 10:10 Urine Nitrite Negative (NEGATIVE) 12/09/24 10:10 Urine Bilirubin Negative (NEGATIVE) 12/09/24 10:10 Urine Urobilinogen Normal (NORMAL) 12/09/24 10:10 Ur Leukocyte Esterase Negative (NEGATIVE) 12/09/24 10:10 Urine RBC None seen /HPF (0-3) 12/09/24 10:10 Urine WBC 0-2 /HPF (0-5) 12/09/24 10:10 Ur Squamous Epith Cells Rare /HPF (NEGATIVE) 12/09/24 10:10 Urine Bacteria Negative /HPF (NEGATIVE) 12/09/24 10:10 Urine Mucus Rare /HPF (NEGATIVE) 12/09/24 10:10 Ur Culture Indicated? No/not indicated 12/09/24 10:10 Assessment and Plan 1: recurrent spontaneous Lt pneumothorax . s/p placement of chest tube . to keep chest tube for few more days . 2: COPD. Problem Patient Problems: Patient Problems Pneumothorax (Acute) J93.9 Acute dyspnea (Acute) R06.00
[2024-12-18] MEDS: MAG-OX TAB PO SCH (10:23)
[2024-12-19 06:22] LABS: BASOPHILS # (AUTO) 0.1 X10^3/uL (0.0-0.1); BASOPHILS % (AUTO) 0.9 % (0.2-1.0); HEMATOCRIT 39.1 % (42.0-54.0); HEMOGLOBIN 13.6 g/dL (13.5-18.0); LYMPHOCYTES # (AUTO) 1.9 X10^3/uL (1.3-2.9); LYMPHOCYTES % (AUTO) 23.1 % (21.0-51.0); MEAN CORPUSCULAR HEMOGLOBIN 32.7 pg (27.0-34.0); MEAN CORPUSCULAR HGB CONC 34.7 g/dL (33.0-35.0); MEAN CORPUSCULAR VOLUME 94.1 fL (80.0-100.0); MEAN PLATELET VOLUME 7.5 fL (7.4-11.0); MONOCYTES # (AUTO) 0.8 x10^3/uL (0.3-0.8); MONOCYTES % (AUTO) 9.6 % (0.0-13.0); NEUTROPHILS # (AUTO) 5.6 x10^3/uL (2.2-4.8); NEUTROPHILS % (AUTO) 66.4 % (42.0-75.0); PLATELET COUNT 341 X10^3/uL (150.0-450.0); RED BLOOD COUNT 4.15 X10^6/uL (4.7-6.0); WHITE BLOOD COUNT 8.4 X10^3/uL (3.6-10.0)
[2024-12-19 06:46] LABS: ALANINE AMINOTRANSFERASE 25 Units/L (12-78); ALBUMIN 3.2 g/dL (3.4-5.0); ALKALINE PHOSPHATASE 73 Units/L (46-116); ASPARTATE AMINO TRANSFERASE 20 Units/L (15-37); BLOOD UREA NITROGEN 11 mg/dL (7-18); CALCIUM 8.7 mg/dL (8.5-10.1); CARBON DIOXIDE 26.7 mmol/L (21-32); CHLORIDE 103 mmol/L (98-107); COR CA(FOR HYPOALB) 9.3 mg/dL (8.5-10.1); CREATININE 0.76 mg/dL (0.70-1.30); GLUCOSE 100 mg/dL (65-99); MAGNESIUM 1.8 mg/dL (2.0-2.9); POTASSIUM 3.6 mmol/L (3.5-5.1); SODIUM 139 mmol/L (136-145); TOTAL PROTEIN 6.4 g/dL (6.4-8.2); eGFR NON BLACK RACES > 60 (>60)
[2024-12-19] MEDS ORDERED: CONSULT PHARMACY - POTASSIUM & MAGNESIUM XX SCH (08:00)
[2024-12-19] MEDS: K-DUR TAB 20 MEQ PO SCH (08:44)
--- NOTE | 2024-12-19 08:52 | RAD ---
EXAM: CHEST, 1 VIEW HISTORY: LEFT PNEUMOTHORAX ; COMPARISON: 12/18/2024 FINDINGS: The lungs are clear. No pneumothorax or effusion. Probable minimal linear scarring or atelectasis in the medial left lung base unchanged from 12/16/2024. Heart size is normal. The bones are unremarkable. EKG leads are noted. A left chest tube is present with the tip at the left infrahilar region. IMPRESSION: 1. No pneumothorax 2. Stable minimal left basilar atelectasis THIS IS AN ELECTRONICALLY VERIFIED FINAL REPORT 12/19/2024 8:29 AM - Electronically signed by Andres Herrera MD
--- NOTE | 2024-12-19 08:54 | DR.PROGNOT ---
HOSPITAL PROGRESS NOTE Progress Note for Day of: Progress Note Date: 12/19/24 Chief Complaint Chief Complaint: No changes, No shortness of breath or significant chest pain. Chest tube in place with good lung expansion and good breath sounds bilaterally. doing fairly well , no significant CP . no SOB . chest X Ray showed expanded Lt lung with a trace apical pneumothorax l. normal lab work .low Mg O2 sat 99 afebrile . Cruz is clear . Past Medical Family Social History Past Med/Fam/Surg Hx: No changes since H&P Allergies: Allergies No Known Drug Allergies Allergy (Unknown, Verified 12/09/24 08:56) Onset Date: 01/25/2022 Vital Signs Vital Signs: Vital Signs Temperature 98.0 F Pulse Rate [Left Radial] 78 Respiratory Rate 16 Blood Pressure [Left Arm] 114/75 O2 Sat by Pulse Oximetry 97 Physical Exam Oriented: Normal Eyes: Normal Ear: Normal Nose: Normal Throat: Normal Respiratory: Normal and OTHER (chest tube in place ..) Speech Pattern: Unable to speak Laboratory and Diagnostics 12/19/24 05:22 12/19/24 05:22 Labs: 12/10/24 13:29 Sputum - Expectorated Sputum Sputum Culture - Final Klebsiella Pneumoniae 12/10/24 13:29 Sputum - Expectorated Sputum - Final Laboratory WBC 8.4 X10^3/uL (3.6-10.0) 12/19/24 05:22 RBC 4.15 X10^6/uL (4.7-6.0) L 12/19/24 05:22 Hgb 13.6 g/dL (13.5-18.0) 12/19/24 05:22 Hct 39.1 % (42.0-54.0) L 12/19/24 05:22 MCV 94.1 fL (80.0-100.0) 12/19/24 05:22 MCH 32.7 pg (27.0-34.0) 12/19/24 05:22 MCHC 34.7 g/dL (33.0-35.0) 12/19/24 05:22 RDW 13.0 % (11.6-16.5) 12/19/24 05:22 Plt Count 341 X10^3/uL (150.0-450.0) 12/19/24 05:22 MPV 7.5 fL (7.4-11.0) 12/19/24 05:22 Neut % (Auto) 66.4 % (42.0-75.0) 12/19/24 05:22 Lymph % (Auto) 23.1 % (21.0-51.0) 12/19/24 05:22 [place] % (Auto) 9.6 % (0.0-13.0) 12/19/24 05:22 Eos % (Auto) 0.0 % (0.9-2.9) L 12/19/24 05:22 Baso % (Auto) 0.9 % (0.2-1.0) 12/19/24 05:22 Neut # (Auto) 5.6 x10^3/uL (2.2-4.8) H 12/19/24 05:22 Lymph # (Auto) 1.9 X10^3/uL (1.3-2.9) 12/19/24 05:22 [place] # (Auto) 0.8 x10^3/uL (0.3-0.8) 12/19/24 05:22 Eos # (Auto) 0.0 x10^3/uL (0.0-0.2) 12/19/24 05:22 Baso # (Auto) 0.1 X10^3/uL (0.0-0.1) 12/19/24 05:22 Absolute Nucleated RBC 0.0 /100WBC 12/19/24 05:22 PT 13.2 SECONDS (11.8-14.3) 12/09/24 08:56 INR Target Range - 12/09/24 08:56 INR 1.02 (0.8-1.3) 12/09/24 08:56 D-Dimer < 0.27 ug/ml (0.0-0.57) 12/09/24 08:56 Sample Site Lbra 12/09/24 09:45 ABG pH 7.430 (7.35-7.45) 12/09/24 09:45 ABG pCO2 38.0 mmHg (35.0-45.0) 12/09/24 09:45 ABG pO2 57.0 mmHg (80.0-100.0) L 12/09/24 09:45 ABG HCO3 25.2 mmol/L (22-26) 12/09/24 09:45 ABG O2 Saturation 90.0 % (90-100) 12/09/24 09:45 ABG Base Excess 1.0 mmol/L (-2.0-2.0) 12/09/24 09:45 Pipe Test N/a 12/09/24 09:45 A-a Gradient 45.0 mmHg 12/09/24 09:45 FiO2 21.0 12/09/24 09:45 Blood Gas Comments Pt martine well elj 12/09/24 09:45 Sodium 139 mmol/L (136-145) 12/19/24 05:22 Corrected Sodium TNP 12/19/24 05:22 Potassium 3.6 mmol/L (3.5-5.1) 12/19/24 05:22 Chloride 103 mmol/L (98-107) 12/19/24 05:22 Carbon Dioxide 26.7 mmol/L (21-32) 12/19/24 05:22 BUN 11 mg/dL (7-18) 12/19/24 05:22 Creatinine 0.76 mg/dL (0.70-1.30) 12/19/24 05:22 Est GFR (MDRD) Af Amer > 60 (>60) 12/19/24 05:22 Est GFR (MDRD) Non-Af > 60 (>60) 12/19/24 05:22 Glucose 100 mg/dL (65-99) H 12/19/24 05:22 Calcium 8.7 mg/dL (8.5-10.1) 12/19/24 05:22 Corrected Calcium 9.3 mg/dL (8.5-10.1) 12/19/24 05:22 Magnesium 1.8 mg/dL (2.0-2.9) L 12/19/24 05:22 Total Bilirubin 0.40 mg/dL (0.2-1.0) 12/19/24 05:22 AST 20 Units/L (15-37) 12/19/24 05:22 ALT 25 Units/L (12-78) 12/19/24 05:22 Alkaline Phosphatase 73 Units/L (46-116) 12/19/24 05:22 Creatine Kinase 169 Units/L (39-308) 12/09/24 08:56 Troponin I High Sens 18.8 ng/L (4.0-60.0) 12/10/24 05:35 B-Natriuretic Peptide 12.9 pg/mL (0-79) 12/09/24 08:56 Total Protein 6.4 g/dL (6.4-8.2) 12/19/24 05:22 Albumin 3.2 g/dL (3.4-5.0) L 12/19/24 05:22 Globulin 3.2 g/dL (2.5-4.5) 12/19/24 05:22 Albumin/Globulin Ratio 1.0 Ratio (1.1-2.1) L 12/19/24 05:22 Triglycerides 70 mg/dL (0-150) 12/10/24 05:35 Cholesterol 189 mg/dL (0-200) 12/10/24 05:35 LDL Cholesterol, Calc 111 mg/dL (0-100) H 12/10/24 05:35 HDL Cholesterol 64 mg/dL (40-60) H 12/10/24 05:35 Cholesterol/HDL Ratio 3.0 (0.0-5.0) 12/10/24 05:35 Specimen Type Clean catch urine 12/09/24 10:10 Urine Color Straw (YELLOW) 12/09/24 10:10 Urine Appearance Clear (CLEAR) 12/09/24 10:10 Urine pH 6.0 (5.0 - 8.0) 12/09/24 10:10 Ur Specific [place] 1.010 (1.000-1.030) 12/09/24 10:10 Urine Protein 1+ (NEGATIVE) 12/09/24 10:10 Urine Glucose (UA) Negative (NEGATIVE) 12/09/24 10:10 Urine Ketones Negative (NEGATIVE) 12/09/24 10:10 Urine Blood Negative (NEGATIVE) 12/09/24 10:10 Urine Nitrite Negative (NEGATIVE) 12/09/24 10:10 Urine Bilirubin Negative (NEGATIVE) 12/09/24 10:10 Urine Urobilinogen Normal (NORMAL) 12/09/24 10:10 Ur Leukocyte Esterase Negative (NEGATIVE) 12/09/24 10:10 Urine RBC None seen /HPF (0-3) 12/09/24 10:10 Urine WBC 0-2 /HPF (0-5) 12/09/24 10:10 Ur Squamous Epith Cells Rare /HPF (NEGATIVE) 12/09/24 10:10 Urine Bacteria Negative /HPF (NEGATIVE) 12/09/24 10:10 Urine Mucus Rare /HPF (NEGATIVE) 12/09/24 10:10 Ur Culture Indicated? No/not indicated 12/09/24 10:10 Assessment and Plan 1: recurrent spontaneous Lt pneumothorax . s/p placement of chest tube . to keep chest tube for few more days . 2: COPD. Problem Patient Problems: Patient Problems Pneumothorax (Acute) J93.9 Acute dyspnea (Acute) R06.00
[2024-12-19] MEDS: MAG-OX TAB PO SCH (09:05)
[2024-12-19] MEDS: MAGNESIUM SULFATE 1 GRAM/100 mL PREMIX 1 G/100 ML BAG IV SCH (10:31)
[2024-12-20 06:14] LABS: BASOPHILS # (AUTO) 0.1 X10^3/uL (0.0-0.1); BASOPHILS % (AUTO) 1.3 % (0.2-1.0); HEMOGLOBIN 13.9 g/dL (13.5-18.0); LYMPHOCYTES % (AUTO) 23.9 % (21.0-51.0); MEAN CORPUSCULAR HEMOGLOBIN 32.7 pg (27.0-34.0); MEAN CORPUSCULAR HGB CONC 34.7 g/dL (33.0-35.0); MEAN CORPUSCULAR VOLUME 94.2 fL (80.0-100.0); MEAN PLATELET VOLUME 7.1 fL (7.4-11.0); MONOCYTES # (AUTO) 0.8 x10^3/uL (0.3-0.8); MONOCYTES % (AUTO) 9.3 % (0.0-13.0); NEUTROPHILS # (AUTO) 5.6 x10^3/uL (2.2-4.8); NEUTROPHILS % (AUTO) 65.5 % (42.0-75.0); PLATELET COUNT 388 X10^3/uL (150.0-450.0); RED BLOOD COUNT 4.24 X10^6/uL (4.7-6.0); RED CELL DISTRIBUTION WIDTH 12.7 % (11.6-16.5); WHITE BLOOD COUNT 8.6 X10^3/uL (3.6-10.0)
[2024-12-20 06:30] LABS: ALANINE AMINOTRANSFERASE 28 Units/L (12-78); ALBUMIN 3.2 g/dL (3.4-5.0); ALKALINE PHOSPHATASE 74 Units/L (46-116); ASPARTATE AMINO TRANSFERASE 21 Units/L (15-37); BLOOD UREA NITROGEN 13 mg/dL (7-18); CALCIUM 8.8 mg/dL (8.5-10.1); CARBON DIOXIDE 28.2 mmol/L (21-32); CHLORIDE 103 mmol/L (98-107); COR CA(FOR HYPOALB) 9.4 mg/dL (8.5-10.1); CREATININE 0.89 mg/dL (0.70-1.30); GLUCOSE 103 mg/dL (65-99); POTASSIUM 4.2 mmol/L (3.5-5.1); SODIUM 139 mmol/L (136-145); TOTAL PROTEIN 6.4 g/dL (6.4-8.2); eGFR NON BLACK RACES > 60 (>60)
[2024-12-20] MEDS: MAGNESIUM SULFATE 1 GRAM/100 mL PREMIX 1 G/100 ML BAG IV SCH (09:52)
--- NOTE | 2024-12-20 10:06 | RAD ---
EXAM: Portable chest HISTORY: Follow-up left pneumothorax COMPARISON: 12/19/2024 FINDINGS: Heart size is normal. [place] are normal. Lungs are hyperinflated but free of acute infiltrates. Le ft chest tube remains in place. There is tiny residual left apical pneumothorax present not signific antly changed from the prior examination. No pleural effusions identified. Bony thorax is unremarka ble. IMPRESSION: Tiny residual left apical pneumothorax Lungs hyperinflated but free of acute infiltrates, consistent with COPD in the appropriate clinical s etting THIS IS AN ELECTRONICALLY VERIFIED FINAL REPORT 12/20/2024 8:42 AM - Electronically signed by Miguel Mcgowan MD
--- NOTE | 2024-12-20 11:33 | DR.PROGNOT ---
HOSPITAL PROGRESS NOTE Progress Note for Day of: Progress Note Date: 12/20/24 Chief Complaint Chief Complaint: Doing fairly well and no changes. No shortness of breath or significant chest pain. Chest tube in place with good lung expansion and good breath sounds bilaterally. chest X Ray showed expanded Lt lung with a trace apical pneumothorax l. normal lab work .low Mg O2 sat 99 afebrile . Cruz is clear . Past Medical Family Social History Past Med/Fam/Surg Hx: No changes since H&P Allergies: Allergies No Known Drug Allergies Allergy (Unknown, Verified 12/09/24 08:56) Onset Date: 01/25/2022 Vital Signs Vital Signs: Vital Signs Temperature 97.6 F Temperature 98.2 F Pulse Rate [Left Radial] 59 Pulse Rate [Left Radial] 78 Respiratory Rate 19 Respiratory Rate 18 Blood Pressure [Left Arm] 101/57 Blood Pressure [Left Arm] 103/68 O2 Sat by Pulse Oximetry 98 O2 Sat by Pulse Oximetry 96 Physical Exam Oriented: Normal Eyes: Normal Ear: Normal Nose: Normal Throat: Normal Respiratory: Normal and OTHER (chest tube in place ..) Speech Pattern: Unable to speak Laboratory and Diagnostics 12/20/24 05:40 12/20/24 05:40 Labs: 12/10/24 13:29 Sputum - Expectorated Sputum Sputum Culture - Final Klebsiella Pneumoniae 12/10/24 13:29 Sputum - Expectorated Sputum - Final Laboratory WBC 8.6 X10^3/uL (3.6-10.0) 12/20/24 05:40 RBC 4.24 X10^6/uL (4.7-6.0) L 12/20/24 05:40 Hgb 13.9 g/dL (13.5-18.0) 12/20/24 05:40 Hct 40.0 % (42.0-54.0) L 12/20/24 05:40 MCV 94.2 fL (80.0-100.0) 12/20/24 05:40 MCH 32.7 pg (27.0-34.0) 12/20/24 05:40 MCHC 34.7 g/dL (33.0-35.0) 12/20/24 05:40 RDW 12.7 % (11.6-16.5) 12/20/24 05:40 Plt Count 388 X10^3/uL (150.0-450.0) 12/20/24 05:40 MPV 7.1 fL (7.4-11.0) L 12/20/24 05:40 Neut % (Auto) 65.5 % (42.0-75.0) 12/20/24 05:40 Lymph % (Auto) 23.9 % (21.0-51.0) 12/20/24 05:40 [place] % (Auto) 9.3 % (0.0-13.0) 12/20/24 05:40 Eos % (Auto) 0.0 % (0.9-2.9) L 12/20/24 05:40 Baso % (Auto) 1.3 % (0.2-1.0) H 12/20/24 05:40 Neut # (Auto) 5.6 x10^3/uL (2.2-4.8) H 12/20/24 05:40 Lymph # (Auto) 2.0 X10^3/uL (1.3-2.9) 12/20/24 05:40 [place] # (Auto) 0.8 x10^3/uL (0.3-0.8) 12/20/24 05:40 Eos # (Auto) 0.0 x10^3/uL (0.0-0.2) 12/20/24 05:40 Baso # (Auto) 0.1 X10^3/uL (0.0-0.1) 12/20/24 05:40 Absolute Nucleated RBC 0.1 /100WBC 12/20/24 05:40 PT 13.2 SECONDS (11.8-14.3) 12/09/24 08:56 INR Target Range - 12/09/24 08:56 INR 1.02 (0.8-1.3) 12/09/24 08:56 D-Dimer < 0.27 ug/ml (0.0-0.57) 12/09/24 08:56 Sample Site Lbra 12/09/24 09:45 ABG pH 7.430 (7.35-7.45) 12/09/24 09:45 ABG pCO2 38.0 mmHg (35.0-45.0) 12/09/24 09:45 ABG pO2 57.0 mmHg (80.0-100.0) L 12/09/24 09:45 ABG HCO3 25.2 mmol/L (22-26) 12/09/24 09:45 ABG O2 Saturation 90.0 % (90-100) 12/09/24 09:45 ABG Base Excess 1.0 mmol/L (-2.0-2.0) 12/09/24 09:45 [place] Test N/a 12/09/24 09:45 A-a Gradient 45.0 mmHg 12/09/24 09:45 FiO2 21.0 12/09/24 09:45 Blood Gas Comments Pt martine well elj 12/09/24 09:45 Sodium 139 mmol/L (136-145) 12/20/24 05:40 Corrected Sodium TNP 12/20/24 05:40 Potassium 4.2 mmol/L (3.5-5.1) 12/20/24 05:40 Chloride 103 mmol/L (98-107) 12/20/24 05:40 Carbon Dioxide 28.2 mmol/L (21-32) 12/20/24 05:40 BUN 13 mg/dL (7-18) 12/20/24 05:40 Creatinine 0.89 mg/dL (0.70-1.30) 12/20/24 05:40 Est GFR (MDRD) Af Amer > 60 (>60) 12/20/24 05:40 Est GFR (MDRD) Non-Af > 60 (>60) 12/20/24 05:40 Glucose 103 mg/dL (65-99) H 12/20/24 05:40 Calcium 8.8 mg/dL (8.5-10.1) 12/20/24 05:40 Corrected Calcium 9.4 mg/dL (8.5-10.1) 12/20/24 05:40 Magnesium 1.8 mg/dL (2.0-2.9) L 12/20/24 05:40 Total Bilirubin 0.30 mg/dL (0.2-1.0) 12/20/24 05:40 AST 21 Units/L (15-37) 12/20/24 05:40 ALT 28 Units/L (12-78) 12/20/24 05:40 Alkaline Phosphatase 74 Units/L (46-116) 12/20/24 05:40 Creatine Kinase 169 Units/L (39-308) 12/09/24 08:56 Troponin I High Sens 18.8 ng/L (4.0-60.0) 12/10/24 05:35 B-Natriuretic Peptide 12.9 pg/mL (0-79) 12/09/24 08:56 Total Protein 6.4 g/dL (6.4-8.2) 12/20/24 05:40 Albumin 3.2 g/dL (3.4-5.0) L 12/20/24 05:40 Globulin 3.2 g/dL (2.5-4.5) 12/20/24 05:40 Albumin/Globulin Ratio 1.0 Ratio (1.1-2.1) L 12/20/24 05:40 Triglycerides 70 mg/dL (0-150) 12/10/24 05:35 Cholesterol 189 mg/dL (0-200) 12/10/24 05:35 LDL Cholesterol, Calc 111 mg/dL (0-100) H 12/10/24 05:35 HDL Cholesterol 64 mg/dL (40-60) H 12/10/24 05:35 Cholesterol/HDL Ratio 3.0 (0.0-5.0) 12/10/24 05:35 Specimen Type Clean catch urine 12/09/24 10:10 Urine Color Straw (YELLOW) 12/09/24 10:10 Urine Appearance Clear (CLEAR) 12/09/24 10:10 Urine pH 6.0 (5.0 - 8.0) 12/09/24 10:10 Ur Specific [place] 1.010 (1.000-1.030) 12/09/24 10:10 Urine Protein 1+ (NEGATIVE) 12/09/24 10:10 Urine Glucose (UA) Negative (NEGATIVE) 12/09/24 10:10 Urine Ketones Negative (NEGATIVE) 12/09/24 10:10 Urine Blood Negative (NEGATIVE) 12/09/24 10:10 Urine Nitrite Negative (NEGATIVE) 12/09/24 10:10 Urine Bilirubin Negative (NEGATIVE) 12/09/24 10:10 Urine Urobilinogen Normal (NORMAL) 12/09/24 10:10 Ur Leukocyte Esterase Negative (NEGATIVE) 12/09/24 10:10 Urine RBC None seen /HPF (0-3) 12/09/24 10:10 Urine WBC 0-2 /HPF (0-5) 12/09/24 10:10 Ur Squamous Epith Cells Rare /HPF (NEGATIVE) 12/09/24 10:10 Urine Bacteria Negative /HPF (NEGATIVE) 12/09/24 10:10 Urine Mucus Rare /HPF (NEGATIVE) 12/09/24 10:10 Ur Culture Indicated? No/not indicated 12/09/24 10:10 Assessment and Plan 1: recurrent spontaneous Lt pneumothorax . s/p placement of chest tube . to keep chest tube over the weekend and try to clamp it after that. 2: COPD. Problem Patient Problems: Patient Problems Pneumothorax (Acute) J93.9 Acute dyspnea (Acute) R06.00
[2024-12-21 07:11] LABS: BASOPHILS # (AUTO) 0.1 X10^3/uL (0.0-0.1); BASOPHILS % (AUTO) 1.7 % (0.2-1.0); HEMATOCRIT 41.2 % (42.0-54.0); HEMOGLOBIN 14.2 g/dL (13.5-18.0); LYMPHOCYTES # (AUTO) 1.8 X10^3/uL (1.3-2.9); LYMPHOCYTES % (AUTO) 23.4 % (21.0-51.0); MEAN CORPUSCULAR HEMOGLOBIN 32.4 pg (27.0-34.0); MEAN CORPUSCULAR HGB CONC 34.4 g/dL (33.0-35.0); MEAN CORPUSCULAR VOLUME 94.2 fL (80.0-100.0); MEAN PLATELET VOLUME 7.2 fL (7.4-11.0); MONOCYTES # (AUTO) 0.6 x10^3/uL (0.3-0.8); MONOCYTES % (AUTO) 8.1 % (0.0-13.0); NEUTROPHILS # (AUTO) 5.1 x10^3/uL (2.2-4.8); NEUTROPHILS % (AUTO) 66.8 % (42.0-75.0); PLATELET COUNT 403 X10^3/uL (150.0-450.0); RED BLOOD COUNT 4.37 X10^6/uL (4.7-6.0); RED CELL DISTRIBUTION WIDTH 12.9 % (11.6-16.5); WHITE BLOOD COUNT 7.7 X10^3/uL (3.6-10.0)
[2024-12-21 08:03] LABS: ALANINE AMINOTRANSFERASE 24 Units/L (12-78); ALBUMIN 3.3 g/dL (3.4-5.0); ALKALINE PHOSPHATASE 72 Units/L (46-116); ASPARTATE AMINO TRANSFERASE 16 Units/L (15-37); BLOOD UREA NITROGEN 16 mg/dL (7-18); CALCIUM 8.8 mg/dL (8.5-10.1); CARBON DIOXIDE 30.6 mmol/L (21-32); CHLORIDE 102 mmol/L (98-107); COR CA(FOR HYPOALB) 9.4 mg/dL (8.5-10.1); CREATININE 0.86 mg/dL (0.70-1.30); GLUCOSE 101 mg/dL (65-99); SODIUM 138 mmol/L (136-145); TOTAL PROTEIN 6.5 g/dL (6.4-8.2); eGFR NON BLACK RACES > 60 (>60)
--- NOTE | 2024-12-21 19:29 | DR.PROGNOT ---
HOSPITAL PROGRESS NOTE Progress Note for Day of: Progress Note Date: 12/21/24 Chief Complaint Chief Complaint: Doing fairly well and no changes. No shortness of breath or significant chest pain. Chest tube in place with good lung expansion and good breath sounds bilaterally. chest X Ray showed expanded Lt lung with a trace apical pneumothorax l. normal lab work .low Mg O2 sat 96.WBC normal as well as BUN, CRE, lyts.. afebrile . Cruz is clear . Past Medical Family Social History Past Med/Fam/Surg Hx: No changes since H&P Allergies: Allergies No Known Drug Allergies Allergy (Unknown, Verified 12/09/24 08:56) Onset Date: 01/25/2022 Vital Signs Vital Signs: Vital Signs Temperature 97.5 F Temperature 98.4 F Pulse Rate [Left Radial] 97 Pulse Rate [Left Radial] 76 Respiratory Rate 20 Respiratory Rate 20 Respiratory Rate 20 Blood Pressure [Left Arm] 111/64 Blood Pressure [Left Arm] 104/63 O2 Sat by Pulse Oximetry 96 O2 Sat by Pulse Oximetry 97 Physical Exam Oriented: Normal Eyes: Normal Ear: Normal Nose: Normal Throat: Normal Respiratory: Normal and OTHER (chest tube in place ..) Speech Pattern: Unable to speak Laboratory and Diagnostics 12/21/24 06:41 12/21/24 06:41 Labs: 12/10/24 13:29 Sputum - Expectorated Sputum Sputum Culture - Final Klebsiella Pneumoniae 12/10/24 13:29 Sputum - Expectorated Sputum - Final Laboratory WBC 7.7 X10^3/uL (3.6-10.0) 12/21/24 06:41 RBC 4.37 X10^6/uL (4.7-6.0) L 12/21/24 06:41 Hgb 14.2 g/dL (13.5-18.0) 12/21/24 06:41 Hct 41.2 % (42.0-54.0) L 12/21/24 06:41 MCV 94.2 fL (80.0-100.0) 12/21/24 06:41 MCH 32.4 pg (27.0-34.0) 12/21/24 06:41 MCHC 34.4 g/dL (33.0-35.0) 12/21/24 06:41 RDW 12.9 % (11.6-16.5) 12/21/24 06:41 Plt Count 403 X10^3/uL (150.0-450.0) 12/21/24 06:41 MPV 7.2 fL (7.4-11.0) L 12/21/24 06:41 Neut % (Auto) 66.8 % (42.0-75.0) 12/21/24 06:41 Lymph % (Auto) 23.4 % (21.0-51.0) 12/21/24 06:41 [place] % (Auto) 8.1 % (0.0-13.0) 12/21/24 06:41 Eos % (Auto) 0.0 % (0.9-2.9) L 12/21/24 06:41 Baso % (Auto) 1.7 % (0.2-1.0) H 12/21/24 06:41 Neut # (Auto) 5.1 x10^3/uL (2.2-4.8) H 12/21/24 06:41 Lymph # (Auto) 1.8 X10^3/uL (1.3-2.9) 12/21/24 06:41 [place] # (Auto) 0.6 x10^3/uL (0.3-0.8) 12/21/24 06:41 Eos # (Auto) 0.0 x10^3/uL (0.0-0.2) 12/21/24 06:41 Baso # (Auto) 0.1 X10^3/uL (0.0-0.1) 12/21/24 06:41 Absolute Nucleated RBC 0.1 /100WBC 12/21/24 06:41 PT 13.2 SECONDS (11.8-14.3) 12/09/24 08:56 INR Target Range - 12/09/24 08:56 INR 1.02 (0.8-1.3) 12/09/24 08:56 D-Dimer < 0.27 ug/ml (0.0-0.57) 12/09/24 08:56 Sample Site Lbra 12/09/24 09:45 ABG pH 7.430 (7.35-7.45) 12/09/24 09:45 ABG pCO2 38.0 mmHg (35.0-45.0) 12/09/24 09:45 ABG pO2 57.0 mmHg (80.0-100.0) L 12/09/24 09:45 ABG HCO3 25.2 mmol/L (22-26) 12/09/24 09:45 ABG O2 Saturation 90.0 % (90-100) 12/09/24 09:45 ABG Base Excess 1.0 mmol/L (-2.0-2.0) 12/09/24 09:45 Pipe Test N/a 12/09/24 09:45 A-a Gradient 45.0 mmHg 12/09/24 09:45 FiO2 21.0 12/09/24 09:45 Blood Gas Comments Pt martine well elj 12/09/24 09:45 Sodium 138 mmol/L (136-145) 12/21/24 06:41 Corrected Sodium TNP 12/21/24 06:41 Potassium 4.0 mmol/L (3.5-5.1) 12/21/24 06:41 Chloride 102 mmol/L (98-107) 12/21/24 06:41 Carbon Dioxide 30.6 mmol/L (21-32) 12/21/24 06:41 BUN 16 mg/dL (7-18) 12/21/24 06:41 Creatinine 0.86 mg/dL (0.70-1.30) 12/21/24 06:41 Est GFR (MDRD) Af Amer > 60 (>60) 12/21/24 06:41 Est GFR (MDRD) Non-Af > 60 (>60) 12/21/24 06:41 Glucose 101 mg/dL (65-99) H 12/21/24 06:41 Calcium 8.8 mg/dL (8.5-10.1) 12/21/24 06:41 Corrected Calcium 9.4 mg/dL (8.5-10.1) 12/21/24 06:41 Magnesium 1.8 mg/dL (2.0-2.9) L 12/20/24 05:40 Total Bilirubin 0.40 mg/dL (0.2-1.0) 12/21/24 06:41 AST 16 Units/L (15-37) 12/21/24 06:41 ALT 24 Units/L (12-78) 12/21/24 06:41 Alkaline Phosphatase 72 Units/L (46-116) 12/21/24 06:41 Creatine Kinase 169 Units/L (39-308) 12/09/24 08:56 Troponin I High Sens 18.8 ng/L (4.0-60.0) 12/10/24 05:35 B-Natriuretic Peptide 12.9 pg/mL (0-79) 12/09/24 08:56 Total Protein 6.5 g/dL (6.4-8.2) 12/21/24 06:41 Albumin 3.3 g/dL (3.4-5.0) L 12/21/24 06:41 Globulin 3.2 g/dL (2.5-4.5) 12/21/24 06:41 Albumin/Globulin Ratio 1.0 Ratio (1.1-2.1) L 12/21/24 06:41 Triglycerides 70 mg/dL (0-150) 12/10/24 05:35 Cholesterol 189 mg/dL (0-200) 12/10/24 05:35 LDL Cholesterol, Calc 111 mg/dL (0-100) H 12/10/24 05:35 HDL Cholesterol 64 mg/dL (40-60) H 12/10/24 05:35 Cholesterol/HDL Ratio 3.0 (0.0-5.0) 12/10/24 05:35 Specimen Type Clean catch urine 12/09/24 10:10 Urine Color Straw (YELLOW) 12/09/24 10:10 Urine Appearance Clear (CLEAR) 12/09/24 10:10 Urine pH 6.0 (5.0 - 8.0) 12/09/24 10:10 Ur Specific [place] 1.010 (1.000-1.030) 12/09/24 10:10 Urine Protein 1+ (NEGATIVE) 12/09/24 10:10 Urine Glucose (UA) Negative (NEGATIVE) 12/09/24 10:10 Urine Ketones Negative (NEGATIVE) 12/09/24 10:10 Urine Blood Negative (NEGATIVE) 12/09/24 10:10 Urine Nitrite Negative (NEGATIVE) 12/09/24 10:10 Urine Bilirubin Negative (NEGATIVE) 12/09/24 10:10 Urine Urobilinogen Normal (NORMAL) 12/09/24 10:10 Ur Leukocyte Esterase Negative (NEGATIVE) 12/09/24 10:10 Urine RBC None seen /HPF (0-3) 12/09/24 10:10 Urine WBC 0-2 /HPF (0-5) 12/09/24 10:10 Ur Squamous Epith Cells Rare /HPF (NEGATIVE) 12/09/24 10:10 Urine Bacteria Negative /HPF (NEGATIVE) 12/09/24 10:10 Urine Mucus Rare /HPF (NEGATIVE) 12/09/24 10:10 Ur Culture Indicated? No/not indicated 12/09/24 10:10 Assessment and Plan 1: recurrent spontaneous Lt pneumothorax . s/p placement of chest tube . to keep chest tube over the weekend and try to clamp it after that. 2: COPD. Problem Patient Problems: Patient Problems (Updated 12/09/24 @ 13:58 by DARSHAN GARZON) Pneumothorax (Acute) J93.9 Acute dyspnea (Acute) R06.00
[2024-12-22 06:42] LABS: BASOPHILS # (AUTO) 0.1 X10^3/uL (0.0-0.1); BASOPHILS % (AUTO) 1.2 % (0.2-1.0); HEMATOCRIT 35.9 % (42.0-54.0); HEMOGLOBIN 12.4 g/dL (13.5-18.0); LYMPHOCYTES # (AUTO) 1.7 X10^3/uL (1.3-2.9); LYMPHOCYTES % (AUTO) 20.5 % (21.0-51.0); MEAN CORPUSCULAR HEMOGLOBIN 32.8 pg (27.0-34.0); MEAN CORPUSCULAR HGB CONC 34.7 g/dL (33.0-35.0); MEAN CORPUSCULAR VOLUME 94.5 fL (80.0-100.0); MEAN PLATELET VOLUME 7.3 fL (7.4-11.0); MONOCYTES # (AUTO) 0.7 x10^3/uL (0.3-0.8); MONOCYTES % (AUTO) 8.9 % (0.0-13.0); NEUTROPHILS # (AUTO) 5.8 x10^3/uL (2.2-4.8); NEUTROPHILS % (AUTO) 69.4 % (42.0-75.0); PLATELET COUNT 395 X10^3/uL (150.0-450.0); RED CELL DISTRIBUTION WIDTH 12.7 % (11.6-16.5); WHITE BLOOD COUNT 8.4 X10^3/uL (3.6-10.0)
[2024-12-22 06:59] LABS: ALANINE AMINOTRANSFERASE 23 Units/L (12-78); ALBUMIN 2.9 g/dL (3.4-5.0); ALKALINE PHOSPHATASE 68 Units/L (46-116); ASPARTATE AMINO TRANSFERASE 16 Units/L (15-37); BLOOD UREA NITROGEN 18 mg/dL (7-18); CALCIUM 8.6 mg/dL (8.5-10.1); CARBON DIOXIDE 29.8 mmol/L (21-32); CHLORIDE 105 mmol/L (98-107); COR CA(FOR HYPOALB) 9.5 mg/dL (8.5-10.1); CREATININE 0.88 mg/dL (0.70-1.30); GLUCOSE 101 mg/dL (65-99); MAGNESIUM 1.8 mg/dL (2.0-2.9); POTASSIUM 4.2 mmol/L (3.5-5.1); SODIUM 138 mmol/L (136-145); TOTAL PROTEIN 5.8 g/dL (6.4-8.2); eGFR NON BLACK RACES > 60 (>60)
--- NOTE | 2024-12-22 11:36 | PCM.PROG ---
Progress Note Progress Note for Day of Date of Exam: 12/21/24 Subjective Subjective: Patient is a 54-year-old male admitted for left long pneumothorax. He does have a chest tube in place with good lung expansion and good breath sounds bilaterally. No acute events overnight. He is resting comfortably in bed this morning. Labs/imaging: WBC 7.7, hemoglobin 14.2, platelets 403, sodium 138, potassium 4.0, creatinine 0.86, glucose 101. General surgery is primary and is managing pneumothorax and chest tube. Will defer to their recommendations. Otherwise continue with current treatment plan. Continue closely monitor and follow-up labs/imaging. Past Medical Family Social History Past Med/Fam/Surg Hx: No changes since H&P Allergies: Allergies No Known Drug Allergies Allergy (Unknown, Verified 12/09/24 08:56) Onset Date: 01/25/2022 Review of Systems ROS changes noted: see HPI Vital Signs and I&O's Vital Signs: Vital Signs Temperature 97.6 F Temperature 98.1 F Pulse Rate [Left Radial] 77 Pulse Rate [Left Radial] 78 Pulse Rate 75 Respiratory Rate 18 Respiratory Rate 19 Respiratory Rate 18 Respiratory Rate 19 Blood Pressure [Left Arm] 122/66 Blood Pressure [Left Arm] 104/64 O2 Sat by Pulse Oximetry 97 O2 Sat by Pulse Oximetry 96 O2 Sat by Pulse Oximetry 99 Intake and Output: Intake & Output 12/19/24 12/20/24 12/21/24 12/22/24 23:59 23:59 23:59 23:59 Intake Total 4013 / 4013 2949 / 2949 2883 / 2883 905 / 905 Output Total 1680 / 1680 1475 / 1475 450 / 450 390 / 390 Balance 2333 / 2333 1474 / 1474 2433 / 2433 515 / 515 Physical Exam Oriented: Normal Eyes: Normal Ear: Normal Nose: Normal Throat: Normal Respiratory: Normal and OTHER (chest tube in place ..) Speech Pattern: Unable to speak Laboratory and Diagnostics 12/22/24 05:38 12/22/24 05:38 Labs: 12/10/24 13:29 Sputum - Expectorated Sputum Sputum Culture - Final Klebsiella Pneumoniae 12/10/24 13:29 Sputum - Expectorated Sputum - Final Laboratory WBC 8.4 X10^3/uL (3.6-10.0) 12/22/24 05:38 RBC 3.80 X10^6/uL (4.7-6.0) L 12/22/24 05:38 Hgb 12.4 g/dL (13.5-18.0) L 12/22/24 05:38 Hct 35.9 % (42.0-54.0) L 12/22/24 05:38 MCV 94.5 fL (80.0-100.0) 12/22/24 05:38 MCH 32.8 pg (27.0-34.0) 12/22/24 05:38 MCHC 34.7 g/dL (33.0-35.0) 12/22/24 05:38 RDW 12.7 % (11.6-16.5) 12/22/24 05:38 Plt Count 395 X10^3/uL (150.0-450.0) 12/22/24 05:38 MPV 7.3 fL (7.4-11.0) L 12/22/24 05:38 Neut % (Auto) 69.4 % (42.0-75.0) 12/22/24 05:38 Lymph % (Auto) 20.5 % (21.0-51.0) L 12/22/24 05:38 [place] % (Auto) 8.9 % (0.0-13.0) 12/22/24 05:38 Eos % (Auto) 0.0 % (0.9-2.9) L 12/22/24 05:38 Baso % (Auto) 1.2 % (0.2-1.0) H 12/22/24 05:38 Neut # (Auto) 5.8 x10^3/uL (2.2-4.8) H 12/22/24 05:38 Lymph # (Auto) 1.7 X10^3/uL (1.3-2.9) 12/22/24 05:38 [place] # (Auto) 0.7 x10^3/uL (0.3-0.8) 12/22/24 05:38 Eos # (Auto) 0.0 x10^3/uL (0.0-0.2) 12/22/24 05:38 Baso # (Auto) 0.1 X10^3/uL (0.0-0.1) 12/22/24 05:38 Absolute Nucleated RBC 0.0 /100WBC 12/22/24 05:38 PT 13.2 SECONDS (11.8-14.3) 12/09/24 08:56 INR Target Range - 12/09/24 08:56 INR 1.02 (0.8-1.3) 12/09/24 08:56 D-Dimer < 0.27 ug/ml (0.0-0.57) 12/09/24 08:56 Sample Site Lbra 12/09/24 09:45 ABG pH 7.430 (7.35-7.45) 12/09/24 09:45 ABG pCO2 38.0 mmHg (35.0-45.0) 12/09/24 09:45 ABG pO2 57.0 mmHg (80.0-100.0) L 12/09/24 09:45 ABG HCO3 25.2 mmol/L (22-26) 12/09/24 09:45 ABG O2 Saturation 90.0 % (90-100) 12/09/24 09:45 ABG Base Excess 1.0 mmol/L (-2.0-2.0) 12/09/24 09:45 Pipe Test N/a 12/09/24 09:45 A-a Gradient 45.0 mmHg 12/09/24 09:45 FiO2 21.0 12/09/24 09:45 Blood Gas Comments Pt martine well elj 12/09/24 09:45 Sodium 138 mmol/L (136-145) 12/22/24 05:38 Corrected Sodium TNP 12/22/24 05:38 Potassium 4.2 mmol/L (3.5-5.1) 12/22/24 05:38 Chloride 105 mmol/L (98-107) 12/22/24 05:38 Carbon Dioxide 29.8 mmol/L (21-32) 12/22/24 05:38 BUN 18 mg/dL (7-18) 12/22/24 05:38 Creatinine 0.88 mg/dL (0.70-1.30) 12/22/24 05:38 Est GFR (MDRD) Af Amer > 60 (>60) 12/22/24 05:38 Est GFR (MDRD) Non-Af > 60 (>60) 12/22/24 05:38 Glucose 101 mg/dL (65-99) H 12/22/24 05:38 Calcium 8.6 mg/dL (8.5-10.1) 12/22/24 05:38 Corrected Calcium 9.5 mg/dL (8.5-10.1) 12/22/24 05:38 Magnesium 1.8 mg/dL (2.0-2.9) L 12/22/24 05:38 Total Bilirubin 0.30 mg/dL (0.2-1.0) 12/22/24 05:38 AST 16 Units/L (15-37) 12/22/24 05:38 ALT 23 Units/L (12-78) 12/22/24 05:38 Alkaline Phosphatase 68 Units/L (46-116) 12/22/24 05:38 Creatine Kinase 169 Units/L (39-308) 12/09/24 08:56 Troponin I High Sens 18.8 ng/L (4.0-60.0) 12/10/24 05:35 B-Natriuretic Peptide 12.9 pg/mL (0-79) 12/09/24 08:56 Total Protein 5.8 g/dL (6.4-8.2) L 12/22/24 05:38 Albumin 2.9 g/dL (3.4-5.0) L 12/22/24 05:38 Globulin 2.9 g/dL (2.5-4.5) 12/22/24 05:38 Albumin/Globulin Ratio 1.0 Ratio (1.1-2.1) L 12/22/24 05:38 Triglycerides 70 mg/dL (0-150) 12/10/24 05:35 Cholesterol 189 mg/dL (0-200) 12/10/24 05:35 LDL Cholesterol, Calc 111 mg/dL (0-100) H 12/10/24 05:35 HDL Cholesterol 64 mg/dL (40-60) H 12/10/24 05:35 Cholesterol/HDL Ratio 3.0 (0.0-5.0) 12/10/24 05:35 Specimen Type Clean catch urine 12/09/24 10:10 Urine Color Straw (YELLOW) 12/09/24 10:10 Urine Appearance Clear (CLEAR) 12/09/24 10:10 Urine pH 6.0 (5.0 - 8.0) 12/09/24 10:10 Ur Specific [place] 1.010 (1.000-1.030) 12/09/24 10:10 Urine Protein 1+ (NEGATIVE) 12/09/24 10:10 Urine Glucose (UA) Negative (NEGATIVE) 12/09/24 10:10 Urine Ketones Negative (NEGATIVE) 12/09/24 10:10 Urine Blood Negative (NEGATIVE) 12/09/24 10:10 Urine Nitrite Negative (NEGATIVE) 12/09/24 10:10 Urine Bilirubin Negative (NEGATIVE) 12/09/24 10:10 Urine Urobilinogen Normal (NORMAL) 12/09/24 10:10 Ur Leukocyte Esterase Negative (NEGATIVE) 12/09/24 10:10 Urine RBC None seen /HPF (0-3) 12/09/24 10:10 Urine WBC 0-2 /HPF (0-5) 12/09/24 10:10 Ur Squamous Epith Cells Rare /HPF (NEGATIVE) 12/09/24 10:10 Urine Bacteria Negative /HPF (NEGATIVE) 12/09/24 10:10 Urine Mucus Rare /HPF (NEGATIVE) 12/09/24 10:10 Ur Culture Indicated? No/not indicated 12/09/24 10:10 Plan (1) Pneumothorax: Status: Acute Qualifiers: Pneumothorax type: spontaneous, tension Qualified Code(s): J93.0 - Spontaneous tension pneumothorax (2) Acute dyspnea: Status: Acute (3) Chest pain: Status: Acute (4) Abnormal EKG: Status: Acute
[2024-12-23 05:48] LABS: BASOPHILS # (AUTO) 0.1 X10^3/uL (0.0-0.1); BASOPHILS % (AUTO) 1.1 % (0.2-1.0); HEMATOCRIT 38.9 % (42.0-54.0); HEMOGLOBIN 13.3 g/dL (13.5-18.0); LYMPHOCYTES # (AUTO) 2.1 X10^3/uL (1.3-2.9); LYMPHOCYTES % (AUTO) 26.8 % (21.0-51.0); MEAN CORPUSCULAR HEMOGLOBIN 32.5 pg (27.0-34.0); MEAN CORPUSCULAR HGB CONC 34.3 g/dL (33.0-35.0); MEAN CORPUSCULAR VOLUME 94.6 fL (80.0-100.0); MEAN PLATELET VOLUME 7.2 fL (7.4-11.0); MONOCYTES # (AUTO) 0.6 x10^3/uL (0.3-0.8); MONOCYTES % (AUTO) 7.5 % (0.0-13.0); NEUTROPHILS % (AUTO) 64.6 % (42.0-75.0); PLATELET COUNT 443 X10^3/uL (150.0-450.0); RED BLOOD COUNT 4.11 X10^6/uL (4.7-6.0); RED CELL DISTRIBUTION WIDTH 12.8 % (11.6-16.5); WHITE BLOOD COUNT 7.7 X10^3/uL (3.6-10.0)
[2024-12-23 05:57] LABS: ALANINE AMINOTRANSFERASE 22 Units/L (12-78); ALBUMIN 3.2 g/dL (3.4-5.0); ALKALINE PHOSPHATASE 72 Units/L (46-116); ASPARTATE AMINO TRANSFERASE 13 Units/L (15-37); BLOOD UREA NITROGEN 15 mg/dL (7-18); CALCIUM 8.9 mg/dL (8.5-10.1); CARBON DIOXIDE 30.5 mmol/L (21-32); CHLORIDE 101 mmol/L (98-107); COR CA(FOR HYPOALB) 9.5 mg/dL (8.5-10.1); CREATININE 0.91 mg/dL (0.70-1.30); GLUCOSE 95 mg/dL (65-99); MAGNESIUM 1.7 mg/dL (2.0-2.9); POTASSIUM 3.9 mmol/L (3.5-5.1); SODIUM 138 mmol/L (136-145); TOTAL PROTEIN 6.3 g/dL (6.4-8.2); eGFR NON BLACK RACES > 60 (>60)
[2024-12-23 07:54] VITALS: PULSE 99
[2024-12-23] MEDS ORDERED: CONSULT PHARMACY - POTASSIUM & MAGNESIUM XX SCH (08:00)
[2024-12-23] MEDS: MAG-OX TAB PO SCH (09:30)
--- NOTE | 2024-12-23 11:23 | DR.PROGNOT ---
HOSPITAL PROGRESS NOTE Progress Note for Day of: Progress Note Date: 12/23/24 Chief Complaint Chief Complaint: Patient is comfortable and no new complaint. Attempted clamping the chest tube resulted in same left pneumothorax. The tube was unclamped and will be continued on low suction. His vital signs and oxygenation are the same, patient is stable. Past Medical Family Social History Past Med/Fam/Surg Hx: No changes since H&P Allergies: Allergies No Known Drug Allergies Allergy (Unknown, Verified 12/09/24 08:56) Onset Date: 01/25/2022 Review Of Systems Changes in ROS: see HPI Vital Signs Vital Signs: Vital Signs Temperature 97.9 F Temperature 97.9 F Pulse Rate [Left Radial] 99 Pulse Rate [Left Radial] 80 Respiratory Rate 19 Respiratory Rate 19 Blood Pressure [Left Arm] 104/69 Blood Pressure [Left Arm] 109/83 O2 Sat by Pulse Oximetry 97 O2 Sat by Pulse Oximetry 97 Physical Exam Oriented: Normal Eyes: Normal Ear: Normal Nose: Normal Throat: Normal Respiratory: Normal and OTHER (chest tube in place ..) Speech Pattern: Unable to speak Laboratory and Diagnostics 12/23/24 05:05 12/23/24 05:05 Labs: 12/10/24 13:29 Sputum - Expectorated Sputum Sputum Culture - Final Klebsiella Pneumoniae 12/10/24 13:29 Sputum - Expectorated Sputum - Final Laboratory WBC 7.7 X10^3/uL (3.6-10.0) 12/23/24 05:05 RBC 4.11 X10^6/uL (4.7-6.0) L 12/23/24 05:05 Hgb 13.3 g/dL (13.5-18.0) L 12/23/24 05:05 Hct 38.9 % (42.0-54.0) L 12/23/24 05:05 MCV 94.6 fL (80.0-100.0) 12/23/24 05:05 MCH 32.5 pg (27.0-34.0) 12/23/24 05:05 MCHC 34.3 g/dL (33.0-35.0) 12/23/24 05:05 RDW 12.8 % (11.6-16.5) 12/23/24 05:05 Plt Count 443 X10^3/uL (150.0-450.0) 12/23/24 05:05 MPV 7.2 fL (7.4-11.0) L 12/23/24 05:05 Neut % (Auto) 64.6 % (42.0-75.0) 12/23/24 05:05 Lymph % (Auto) 26.8 % (21.0-51.0) 12/23/24 05:05 [place] % (Auto) 7.5 % (0.0-13.0) 12/23/24 05:05 Eos % (Auto) 0.0 % (0.9-2.9) L 12/23/24 05:05 Baso % (Auto) 1.1 % (0.2-1.0) H 12/23/24 05:05 Neut # (Auto) 5.0 x10^3/uL (2.2-4.8) H 12/23/24 05:05 Lymph # (Auto) 2.1 X10^3/uL (1.3-2.9) 12/23/24 05:05 [place] # (Auto) 0.6 x10^3/uL (0.3-0.8) 12/23/24 05:05 Eos # (Auto) 0.0 x10^3/uL (0.0-0.2) 12/23/24 05:05 Baso # (Auto) 0.1 X10^3/uL (0.0-0.1) 12/23/24 05:05 Absolute Nucleated RBC 0.1 /100WBC 12/23/24 05:05 PT 13.2 SECONDS (11.8-14.3) 12/09/24 08:56 INR Target Range - 12/09/24 08:56 INR 1.02 (0.8-1.3) 12/09/24 08:56 D-Dimer < 0.27 ug/ml (0.0-0.57) 12/09/24 08:56 Sample Site Lbra 12/09/24 09:45 ABG pH 7.430 (7.35-7.45) 12/09/24 09:45 ABG pCO2 38.0 mmHg (35.0-45.0) 12/09/24 09:45 ABG pO2 57.0 mmHg (80.0-100.0) L 12/09/24 09:45 ABG HCO3 25.2 mmol/L (22-26) 12/09/24 09:45 ABG O2 Saturation 90.0 % (90-100) 12/09/24 09:45 ABG Base Excess 1.0 mmol/L (-2.0-2.0) 12/09/24 09:45 Pipe Test N/a 12/09/24 09:45 A-a Gradient 45.0 mmHg 12/09/24 09:45 FiO2 21.0 12/09/24 09:45 Blood Gas Comments Pt martine well elj 12/09/24 09:45 Sodium 138 mmol/L (136-145) 12/23/24 05:05 Corrected Sodium TNP 12/23/24 05:05 Potassium 3.9 mmol/L (3.5-5.1) 12/23/24 05:05 Chloride 101 mmol/L (98-107) 12/23/24 05:05 Carbon Dioxide 30.5 mmol/L (21-32) 12/23/24 05:05 BUN 15 mg/dL (7-18) 12/23/24 05:05 Creatinine 0.91 mg/dL (0.70-1.30) 12/23/24 05:05 Est GFR (MDRD) Af Amer > 60 (>60) 12/23/24 05:05 Est GFR (MDRD) Non-Af > 60 (>60) 12/23/24 05:05 Glucose 95 mg/dL (65-99) 12/23/24 05:05 Calcium 8.9 mg/dL (8.5-10.1) 12/23/24 05:05 Corrected Calcium 9.5 mg/dL (8.5-10.1) 12/23/24 05:05 Magnesium 1.7 mg/dL (2.0-2.9) L 12/23/24 05:05 Total Bilirubin 0.30 mg/dL (0.2-1.0) 12/23/24 05:05 AST 13 Units/L (15-37) L 12/23/24 05:05 ALT 22 Units/L (12-78) 12/23/24 05:05 Alkaline Phosphatase 72 Units/L (46-116) 12/23/24 05:05 Creatine Kinase 169 Units/L (39-308) 12/09/24 08:56 Troponin I High Sens 18.8 ng/L (4.0-60.0) 12/10/24 05:35 B-Natriuretic Peptide 12.9 pg/mL (0-79) 12/09/24 08:56 Total Protein 6.3 g/dL (6.4-8.2) L 12/23/24 05:05 Albumin 3.2 g/dL (3.4-5.0) L 12/23/24 05:05 Globulin 3.1 g/dL (2.5-4.5) 12/23/24 05:05 Albumin/Globulin Ratio 1.0 Ratio (1.1-2.1) L 12/23/24 05:05 Triglycerides 70 mg/dL (0-150) 12/10/24 05:35 Cholesterol 189 mg/dL (0-200) 12/10/24 05:35 LDL Cholesterol, Calc 111 mg/dL (0-100) H 12/10/24 05:35 HDL Cholesterol 64 mg/dL (40-60) H 12/10/24 05:35 Cholesterol/HDL Ratio 3.0 (0.0-5.0) 12/10/24 05:35 Specimen Type Clean catch urine 12/09/24 10:10 Urine Color Straw (YELLOW) 12/09/24 10:10 Urine Appearance Clear (CLEAR) 12/09/24 10:10 Urine pH 6.0 (5.0 - 8.0) 12/09/24 10:10 Ur Specific [place] 1.010 (1.000-1.030) 12/09/24 10:10 Urine Protein 1+ (NEGATIVE) 12/09/24 10:10 Urine Glucose (UA) Negative (NEGATIVE) 12/09/24 10:10 Urine Ketones Negative (NEGATIVE) 12/09/24 10:10 Urine Blood Negative (NEGATIVE) 12/09/24 10:10 Urine Nitrite Negative (NEGATIVE) 12/09/24 10:10 Urine Bilirubin Negative (NEGATIVE) 12/09/24 10:10 Urine Urobilinogen Normal (NORMAL) 12/09/24 10:10 Ur Leukocyte Esterase Negative (NEGATIVE) 12/09/24 10:10 Urine RBC None seen /HPF (0-3) 12/09/24 10:10 Urine WBC 0-2 /HPF (0-5) 12/09/24 10:10 Ur Squamous Epith Cells Rare /HPF (NEGATIVE) 12/09/24 10:10 Urine Bacteria Negative /HPF (NEGATIVE) 12/09/24 10:10 Urine Mucus Rare /HPF (NEGATIVE) 12/09/24 10:10 Ur Culture Indicated? No/not indicated 12/09/24 10:10 Assessment and Plan 1: recurrent spontaneous Lt pneumothorax . Will continue same suction on the chest tube and observe for now. 2: COPD. Problem Patient Problems: Patient Problems Pneumothorax (Acute) J93.9 Acute dyspnea (Acute) R06.00
--- NOTE | 2024-12-23 11:37 | RAD ---
EXAM: CHEST, 1 VIEW HISTORY: post chest tube clamped; COPD ORTHO COMPARISON: 12/20/2024 FINDINGS: The cardiomediastinal silhouette is stable. No acute airspace disease. Similar appearance of left chest tube. Significantly increased size of no w large left pneumothorax. No acute osseous abnormality. IMPRESSION: Increasing size of now large left pneumothorax with partial collapse of the left lung. THIS IS AN ELECTRONICALLY VERIFIED FINAL REPORT 12/23/2024 11:33 AM - Electronically signed by Miguel Mcgowan MD
--- NOTE | 2024-12-23 13:54 | RAD ---
EXAM:CHEST, 1 VIEWHISTORY:CHECKING LUNG INFLATION;COMPARISON:No relevant prior studies were available for comparison at the time of interpretation.TECHNIQUE:CHEST, 1 VIEWFINDINGS:Chest:Lines and tubes: Cardiac leads overlie the chest. There is a left chest tubeMediastinum: Cardiac and mediastinal shadow is within normal limits for size and contour.Pulmonary vessels: No pulmonary vascular congestion.Lung quintana: No suspicious airspace opacity.Pleura: No effusion. No pneumothorax.Bones and soft tissues: No acute osseous or soft tissue abnormality.IMPRESSION:1. Left chest tube in satisfactory position. No residual left pneumothorax.THIS IS AN ELECTRONICALLY VERIFIED FINAL REPORT12/23/2024 1:51 PM - Electronically signed by Khalif Hayes MD
[2024-12-23 16:04] VITALS: TEMP 98; O2SAT 100
[2024-12-23 16:06] VITALS: BP 114/70
[2024-12-23 18:18] VITALS: RESP 20
== END 2024-12-23 19:45 | disposition critical access hospital (66) | DRG 200 ==
LOC: ER 08:51 → MED/SURG 10:25
PROVIDERS: ADMIT Surgery; ATTEND Surgery
DX: R94.31 Abnormal electrocardiogram [ECG] [EKG]; R06.02 Shortness of breath; E83.42 Hypomagnesemia; Z16.11 Resistance to penicillins; E80.6 Other disorders of bilirubin metabolism; H91.3 Deaf nonspeaking, not elsewhere classified; B96.1 Klebsiella pneumoniae [K. pneumoniae] as the cause of diseases classified elsewhere; R07.89 Other chest pain; R06.09 Other forms of dyspnea; J93.11 Primary spontaneous pneumothorax; J44.89 Other specified chronic obstructive pulmonary disease